=== PATIENT | male | born 1945 | race Caucasian/White ===

== ENCOUNTER → 2017-11-03 07:37 | Outpatient (CLI) | payer MEDICARE, MEDICAID, SELFPAY ==
--- NOTE | 2017-11-03 08:00 | US_ITS ---
US aorta HISTORY: Screening for aneurysm ITS.REASON: AAA COMPARISON: 04/27/2016 FINDINGS: No evidence of abdominal aortic aneurysm. Maximum AP dimension of the abdominal aorta is 2 cm. The common iliacs are unremarkable. IMPRESSION: No sonographic evidence of abdominal aortic aneurysm
--- NOTE | 2017-11-03 08:30 | CT_ITS ---
CT lung screening EXAM: CT LUNG LOW DOSE WO CONTRAST HISTORY: 30+ back year smoking history currently smoking, asymptomatic ITS.REASON: CURRENT TOBACCO USE ORDERING PHYSICIAN: Malcom Prieto MD PATIENT AGE: 72 years COMPARISON: None TECHNIQUE: The exam was performed on a GE [employer] Speed [address] scanner using 2.90 mGy CTDI. A low dose helical CT CHEST was performed on a multi-detector scanner. All CT scans at the facility use one or more dose reduction, viz: automated exposure control, ma/kV adjustment per patient size (including targeted exams where dose is matched to indication, i.e. head), or iterative reconstruction technique. The LDCT was performed in a facility that meets the criteria for the screening program. Data regarding this exam was submitted to ACR which is an approved registry. The order for this exam indicates that it came as a result of a lung cancer screening counseling shard decision-making visit that included all the elements required of such a visit including smoking cessation. The radiologist interpreting this exam meets the CMS criteria for the LDCT lung cancer screening program. The exam is reported using the Lung-RADS classification scale and reported to the ACR registry. NOTE: This study was performed for the specific purposes of lung cancer screening and is not an alternative to diagnostic chest CT. RADIATION DOSE: CTDI vol(CT dose Index-volume) = 2.90mG DLP (Dose Length Product) = 113.59 mGcm FINDINGS: Centrilobular emphysema with scattered areas of scarring worse in the right lung apex 7 mm noncalcified nodule in the right upper lobe posteriorly in the subpleural region of the major fissure. 3 mm noncalcified nodule right upper lobe anteriorly. 4 mm noncalcified nodule right upper lobe posteriorly fissural thickening of the right minor fissure. 4 mm nodule right upper lobe anteriorly and inferiorly, 4 mm nodule right upper lobe inferiorly along the minor fissure. 4 mm nodule right middle lobe posteriorly and superiorly. There are multiple small nodules in the right middle lobe 4 mm or less. Multiple 4 mm nodules or less in the right lower lobe. Multiple noncalcified nodules in the left lower lobe the largest at 6 mm.. 5 mm noncalcified nodule left apex. There is an oval calcified nodule left upper lobe which is 12 x 5 mm. No central obstructing lesions. There is mild diffuse bronchial thickening. Coronary artery calcification noted. Nonobstructing left renal stone superiorly at 5 mm. IMPRESSION: 1. Lung RADS Category: 4, indeterminate regarding multiple noncalcified pulmonary nodules the largest at 7 mm 2. Other findings: Centrilobular emphysema, coronary artery calcification, COPD RECOMMENDATIONS: [address] follow-up without and with contrast
== END ==
PROVIDERS: Family Provider Family Medicine; PCP Family Medicine; Visit Provider Family Medicine
DX: Z13.6 Encounter for screening for cardiovascular disorders (principal); Z12.2 Encounter for screening for malignant neoplasm of respiratory organs; Z87.891 Personal history of nicotine dependence
CPT/HCPCS: 76770

== ENCOUNTER → 2018-04-26 13:53 | Outpatient (CLI) | payer MEDICARE, MEDICAID, SELFPAY ==
[2018-04-26 14:14] LABS: Blood Urea Nitrogen 19 mg/dL (7-18); Creatinine,Serum 1.09 mg/dL (0.70-1.30); Estimated Glomerular Filt Rate 67 ml/min (>60); GFR (African American) 81 ML/MIN (>60)
--- NOTE | 2018-04-26 14:27 | CT_ITS ---
CT chest wo/w con HISTORY: Follow-up lung nodules ITS.REASON: LUNG NODULES,F/U ORDERING PHYSICIAN: Malcom Prieto MD PATIENT AGE: 72 years COMPARISON: 04/26/2018 Technique: Axial images obtained following the administration of 75 mL of Optiray 350 . Sagittal, and coronal reformatted images are also generated and reviewed. All CT scans at the facility use one or more dose reduction, viz: automated exposure control, ma/kV adjustment per patient size (including targeted exams where dose is matched to indication, i.e. head), or iterative reconstruction technique. FINDINGS: No mediastinal or hilar mass or adenopathy is evident. There are coronary artery calcifications noted to. No evidence of aortic aneurysm, dissection, or pulmonary embolus. Diffuse panlobular and centrilobular emphysematous changes are with diffuse areas of pulmonary scarring. There are numerous subcentimeter nodular opacities present. A 7 mm fissural nodule is resident in the region of the right minor fissure not readily apparent on the previous exam. Other nodule previously noted are somewhat less adherent in the inferior aspect of the right upper lobe. Many nodules are stable. A new 6 mm nodular opacity is present in the right lower lobe superior aspect series 3 image #51. A new 5 mm nodule present in the right lower lobe anteriorly series 3 image #62 there are stable 5 mm nodule left lower lobe series 3 image #54. The previously noted more prominent nodule in the right upper lobe posteriorly not identified on today's exam. Previously described calcified nodule left upper lobe is unchanged. The 5 mm nodule is present in the right middle lobe series 3 image 54 not readily apparent on the previous study. No effusions or infiltrates. Upper abdominal images are unremarkable. Degenerative changes are present in the thoracic spine. IMPRESSION: 1. Centrilobular and panlobular emphysema with scattered areas of fibrosis and old granulomatous disease 2. Waxing and waning nodules suggesting inflammatory etiology. Treated neoplasm would be included in the differential diagnosis Continued 6 month follow-up suggested. This can be performed without contrast
== END ==
PROVIDERS: Visit Provider Family Medicine
DX: R91.8 Other nonspecific abnormal finding of lung field (principal); Z09 Encounter for follow-up examination after completed treatment for conditions other than malignant neoplasm
CPT/HCPCS: 36415; 71270; 82565; 84520; Q9967

== ENCOUNTER → 2019-02-25 10:31 | Outpatient (CLI) | payer MEDICARE, MEDICAID, SELFPAY ==
--- NOTE | 2019-02-25 10:36 | XR_ITS ---
PROCEDURE: XR CHEST 2V CLINICAL HISTORY: DYSPNEA,COUGH,TOBACCO USE,COPD Dyspnea, cough, former smoker COMPARISON: CHESTWW CT chest wo/w con from 04/26/2018 FINDINGS: There are moderate emphysematous changes with scattered areas of scarring. Unremarkable cardiovascular structures. No lobar consolidation or collapse. Hyperinflation with eventration of the hemidiaphragms. Nodular opacity is present in the left upper lobe and is felt to be due to an area of scarring as noted on the previous CT scan. No acute bony anomaly. IMPRESSION: Emphysema with scattered fibrotic changes Dictated by: Yair Santos MD 02/25/2019 11:10 Electronically signed by Yair Santos MD in [place] 02/25/2019 11:10
== END ==
PROVIDERS: PCP Family Medicine; Visit Provider Family Medicine
DX: R06.09 Other forms of dyspnea (principal); R05 Cough; J44.1 Chronic obstructive pulmonary disease with (acute) exacerbation; F17.210 Nicotine dependence, cigarettes, uncomplicated
CPT/HCPCS: 71046

== ENCOUNTER → 2019-03-08 10:15 | Outpatient (CLI) | payer MEDICARE, MEDICAID, SELFPAY ==
--- NOTE | 2019-03-08 10:19 | CA_ITS ---
APPROVED REPORT EXAM: Comprehensive 2D, Doppler, and color-flow Echocardiogram Poker Prop Player: Maki New CRT Ht: 6 ft 0 in Wt: 145lbs BSA: 1.86 BP: 110/74 mmHg Indications: COPD, Shortness of Breath, EX SMOKER, HTN, PAD 2D Dimensions IVSd 1.20 cm LVEF (Visual) 43.50 % PWd 0.90 cm LVDd 3.80 cm LVDs 3.00 cm LVOT 1.80 cm (M/F) 1.5-2.5 M-Mode Dimensions LA Diam 3.30 cm (1.9-4.0) Ao Diam 3.80 cm (2.0-3.7) AV Cusp 1.90 cm (1.5-2.6) LV Diastology E/A Ratio 1.00 Aortic Valve AoV Peak Danny. 98.20 (50-130 cm/s) AO Peak GR. 4.00 mmHg Mitral Valve MV E Max Danny. 81.40 (40-130 cm/s) MV A Velocity 79.00 (40-130 cm/s) E/A Ratio 1.00 Pulmonary Valve PA Accel Time 113.00 (>120 msec) Tricuspid Valve TR P. Velocity 256.00 cm/s RAP Estimate 10.00 mmHg RVSP 36.00 mmHg Left Ventricle Left atrium is mildly enlarged, left ventricle is normal size, there is mild concentric left ventricular hypertrophy, visually estimated ejection fraction 55% with no regional wall motion abnormality, diastolic parameters are inconclusive. Right Ventricle Right atrium right ventricular mildly enlarged with normal contractility. Aortic Valve Aortic valve is minimally thickened and fibrosed, there is no aortic stenosis or aortic insufficiency. Mitral Valve Mitral valve leaflets are minimally thickened, there is mild mitral regurgitation. Tricuspid Valve Tricuspid valve is grossly normal, there is mild tricuspid regurgitation, calculated right ventricular systolic pressure 39 mmHg. Pulmonic Valve Pulmonic valve is poorly visualized. Great Vessels Aortic root is normal size. Pericardium No significant pericardial effusion noted. Conclusion 1. Mild biatrial abdomen, normal left ventricular size, mild concentric left ventricular hypertrophy, visually estimated ejection fraction 55% with no regional wall motion abnormality, diastolic parameters are inconclusive. 2. Mildly enlarged right ventricle with normal contractility. 3. Mild mitral and tricuspid regurgitation, calculated right ventricular systolic pressure 39 mmHg. 4. No significant pericardial effusion noted. Electronically signed by : Rodolfo Ford, 03/08/2019 21:14:55
== END ==
PROVIDERS: PCP Family Medicine; Visit Provider Family Medicine
DX: R06.09 Other forms of dyspnea (principal); I73.9 Peripheral vascular disease, unspecified; J44.1 Chronic obstructive pulmonary disease with (acute) exacerbation; F17.210 Nicotine dependence, cigarettes, uncomplicated
CPT/HCPCS: 93306

== ENCOUNTER → 2020-04-16 13:07 | Outpatient (CLI) | payer MEDICARE, MEDICAID, SELFPAY ==
--- NOTE | 2020-04-16 13:10 | CT_ITS ---
PROCEDURE: CT LUNG SCREENING CLINICAL INDICATION: H/O NICOTINE DEPENDENCE Current smoker 50 pack year smoking history COMPARISON: CT CHESTWW CT chest wo/w con from 04/26/2018 TECHNIQUE: The exam was performed on a [employer] Speed [address] scanner using 2.90 mGy CTDI. A low dose helical CT CHEST was performed on a multi-detector scanner. All CT scans at the facility use one or more dose reduction, viz: automated exposure control, ma/kV adjustment per patient size (including targeted exams where dose is matched to indication, i.e. head), or iterative reconstruction technique. The LDCT was performed in a facility that meets the criteria for the screening program. Data regarding this exam was submitted to ACR which is an approved registry. The order for this exam indicates that it came as a result of a lung cancer screening counseling shard decision-making visit that included all the elements required of such a visit including smoking cessation. The radiologist interpreting this exam meets the CMS criteria for the LDCT lung cancer screening program. The exam is reported using the Lung-RADS classification scale and reported to the ACR registry. NOTE: This study was performed for the specific purposes of lung cancer screening and is not an alternative to diagnostic chest CT. RADIATION DOSE: CTDI vol(CT dose Index-volume) = 2.90mG DLP (Dose Length Product) = 113.33 mGcm FINDINGS: COPD with centrilobular emphysema. There are scattered areas of scarring especially in the lung apices. There is evidence of old granulomatous disease. Fissural nodule is present in the right minor fissure anteriorly at 5 mm unchanged. No effusions or infiltrates. No suspicious pulmonary nodules. There are few small 2-3 mm nodular opacities which are unchanged with no new nodules apparent. OTHER FINDINGS: Coronary artery calcifications IMPRESSION: Lung-RADS Category 2 Benign Appearance or Behavior Follow-up: Continue annual screening with LDCT in 12 months Dictated by: Yair Santos MD 04/22/2020 12:28 Yair Santos MD in [place] 04/22/2020 12:28
--- NOTE | 2020-04-16 13:24 | CA_ITS ---
APPROVED REPORT EXAM: Comprehensive 2D, Doppler, and color-flow Echocardiogram [employer]ard Mitigation Officer: Michelle Jimenez RVT Ht: 6 ft 0 in Wt: 145lbs BSA: 1.86 BP: 123/76 mmHg Indications: SOA,COPD,HTN,EX SMOKER 2D Dimensions LVOT 2.03 cm (M/F) 1.5-2.5 M-Mode Dimensions RVDd 2.74 cm (0.9-2.6) LA Diam 3.16 cm (1.9-4.0) LVDd 4.18 cm (3.5-5.7) Ao Diam 3.16 cm (2.0-3.7) LVDs 2.55 cm (3.5-5.7) IVSd 0.57 cm (0.6-1.1) PWd 0.61 cm (0.6-1.1) EF (Teich) 69.90% FS 39.00% EDV (Teich) 77.70 mL ESV (Teich) 23.40 mL LV Diastology E Decel Time 210.00 (160-240 msec) E/A Ratio 1.4 MED E' 10.40 (< 7 cm/sec) E'/MED E' Ratio 8.38 (>14) LAT E' 9.10 (<10 cm/sec) E/LAT E' Ratio 9.58 (>14) Mitral Valve MV E Max Danny. 87.00 (40-130 cm/s) MV A Velocity 64.00 (40-130 cm/s) E/A Ratio 1.36 MV Decel. Time 210.00 (160-240 ms) MV PHT 62.00 ms Pulmonary Valve PV Peak Velocity 76.00 (50-150 cm/s) Tricuspid Valve TR P. Velocity 261.00 cm/s RAP Estimate 10.00 mmHg RVSP 37.20 mmHg Left Ventricle Left atrium is mildly enlarged, left ventricle is normal size, mild concentric left ventricular hypertrophy, visually estimated ejection fraction 55% with no regional wall motion abnormality, diastolic parameters are inconclusive. Right Ventricle Right atrium and right ventricle are mildly enlarged with normal contractility. Aortic Valve Aortic valve is minimally thickened and fibrosed, there is no aortic stenosis or aortic insufficiency. Mitral Valve Mitral valve leaflets are minimally thickened, there is trace mitral regurgitation. Tricuspid Valve Tricuspid grossly normal, there is mild tricuspid regurgitation, calculated right ventricular systolic pressure 37 mmHg. Pulmonic Valve Pulmonic valve is poorly visualized. Great Vessels Aortic root is normal size. Pericardium No significant pericardial effusion noted. Conclusion 1. Mild biatrial enlargement, normal left ventricular size, mild concentric left ventricular hypertrophy, visually estimated ejection fraction 55% with no regional wall motion abnormality, diastolic parameters are inconclusive. 2. Mildly enlarged right ventricle with normal contractility. 3. Trace mitral and mild tricuspid regurgitation, calculated right ventricular systolic pressure is 37 mmHg. 4. No significant pericardial effusion noted. Electronically signed by : Rodolfo Ford, 04/16/2020 17:59:07
== END ==
PROVIDERS: PCP Family Medicine; Visit Provider Family Medicine
DX: Z87.891 Personal history of nicotine dependence (principal); Z12.2 Encounter for screening for malignant neoplasm of respiratory organs; R06.02 Shortness of breath
CPT/HCPCS: 71271; 93306

== ENCOUNTER → 2020-05-01 10:16 | Outpatient (CLI) | payer MEDICARE, MEDICAID, SELFPAY ==
[2020-05-01 11:36] LABS: Coronavirus 19 IgG Antibody Positive (Negative); Coronavirus 19 IgM Antibody Negative (Negative)
== END ==
PROVIDERS: Visit Provider Surgery
DX: Z01.818 Encounter for other preprocedural examination (principal); Z20.822 Contact with and (suspected) exposure to COVID-19; Z12.11 Encounter for screening for malignant neoplasm of colon; Z86.010 Personal history of colon polyps
CPT/HCPCS: 36415; 86328

== ENCOUNTER 2020-05-03 09:27 | Day surgery (SDC) | payer MEDICARE, MEDICAID, SELFPAY ==
[2020-05-03] VITALS (7 sets, daily range): BP systolic 93–127; BP diastolic 62–69; PULSE 67–107; RESP 12–18; TEMP 36.2–36.5; O2SAT 97–100
--- NOTE | 2020-05-03 12:21 | HMH.SCOPE ---
- Procedure: Date: 05/03/20 Patient Date of :: 1945 Procedure Performed:: Esophagogastroduodenoscopy with biopsy Colonoscopy Indications:: History of colon polyps Abhi blood in stool Performing Provider:: Thang Hernandes MD Referring Provider:: . Sedation:: Monitored anesthesia care Procedure:: After informed consent was obtained the patient was taken to the endoscopy suite. Sedation ensued after the patient was transferred to the left lateral decubitus position. Pulse, blood pressure, and oxygen saturation were monitored throughout the procedure. The endoscope was advanced beyond the duodenal bulb. Retroflexion within the gastric lumen was accomplished. The gastroscope was carefully removed. Digital rectal exam revealed no significant abnormality. The colonoscope was placed in position. The entire colon was evaluated. The colonoscope was carefully removed and the patient was transferred to recovery in stable condition. Please see findings and specimens below for detail. Findings:: Moderate tortuosity of esophagus Gastroesophageal junction at 44 cm Small sliding hiatal hernia Mild patchy gastritis Bowel preparation moderate Hemorrhoidal cushions Sigmoid diverticulosis Specimens:: Antral biopsy Pyloric channel biopsy Biopsy of gastroesophageal junction Recommendations:: Follow-up pathology Consider UGI/SBFT followed by capsule endoscopy Repeat colonoscopy in 2-3 years secondary to history of polyps and moderate bowel preparation. Complications:: No immediate Estimated blood obtained (mL): 1
--- NOTE | 2020-05-03 15:10 | P.PN_ITS ---
[facility] Anesthesia Checklist - Patient Identification Patient Identification: Arm Band - Structural Data Admitted From: Home Planned Operative Procedure/s: EGD/Colonoscopy Consent for Planned Operative Procedure(s) Verified: Yes Verified Documents: Surgical Consent, History and Physical - NPO Status Verified Time NPO: 00:00 - Airway Assessment C-Spine Mobility Assessed: Yes TMJ Mobility Assessed: Yes Dentition: Edentulous - Neurological Assessment Level of Consciousness: Awake, Alert - Anesthesia Plan Anesthesia Risk discussed: Yes Anesthesia Plan: Verified ASA Class: II Anesthesia Type: MAC [facility] History Medical History: Reports:: Cancer (prostate), Hypertension Denies:: Diabetes Mellitus Type 1, Diabetes Mellitus Type 2, Internal Pacemaker, MRSA, Seizures *Have you ever received a pneumonia vaccine?: Yes *Have you received a flu vaccine this season?: Yes Anesthesia experience/problems:: NAC Other Surgeries: No: Pacemaker Amputation: No Fractures: No - *Social History Smoking Status: Current every day smoker Tobacco Type: cigarettes # Packs/Day (cigarettes): 1 #Yrs smoked (if former smoker): 20 Alcohol Intake: never Substance Use Type: denies use *Occupational Status:: retired Household Members: spouse *Travel in the last 8 weeks: None Family Hx:: No significant family history
--- NOTE | 2020-05-03 15:15 | P.PN_ITS ---
[facility] Anesthesia Record Part I Intake, IV Amount: 300 Estimated blood loss (mL): 0 Urine output (mL): 0 Blood Products used (#): none Blood Pressure: 93/62 SaO2: 100 Pulse Rate: 107 Respiratory Rate: 12 Temperature: 97.7 F Patient is:: Drowsy, Stable Stable to PACU at:: 12:17
== END 2020-05-03 12:58 | disposition home or self-care (01) ==
LOC: OUTP 09:29
PROVIDERS: PCP Family Medicine; Visit Provider Surgery
PROC: 0DJ08ZZ Inspection of Upper Intestinal Tract, Via Natural or Artificial Opening Endoscopic (ICD-10-PCS; CPT 43235; principal; 2020-05-03 10:30)
DX: K44.9 Diaphragmatic hernia without obstruction or gangrene (principal); K22.2 Esophageal obstruction; K29.60 Other gastritis without bleeding; K64.0 First degree hemorrhoids; K57.30 Diverticulosis of large intestine without perforation or abscess without bleeding; Z86.010 Personal history of colon polyps; I10 Essential (primary) hypertension; Z85.46 Personal history of malignant neoplasm of prostate; Z79.899 Other long term (current) drug therapy
CPT/HCPCS: 43239; 45378; 88305

== ENCOUNTER 2020-05-24 04:51 | Observation (INO) | payer MEDICARE, MEDICAID, SELFPAY ==
[2020-05-24] VITALS (23 sets, daily range): BP systolic 85–139; BP diastolic 51–74; PULSE 61–92; RESP 16–19; TEMP 36.3–36.9; O2SAT 92–100; BMI 17.6; BMI 18.3
--- NOTE | 2020-05-24 05:07 | HMH.EDGIBL ---
ED Disposition Clinical Impression: Upper gastrointestinal hemorrhage GI bleed Qualifiers: GI bleed type/associated pathology: melena Qualified Code(s): K92.1 - Melena Disposition: Admitted As Inpatient Condition on Discharge: Good Referrals: Malcom Prieto MD [Primary Care Provider] - - Critical Care Critical Care Time: No Attestation: On , the high probability of a clinically significant, sudden or life threatening deterioration of the following system(s) required my full and direct attention, intervention and personal management. The time I documented below is in addition to time spent performing reported procedures but includes the following listed in this critical care notation. Medical Decision Making - Medical Records Medical records reviewed: Yes: I reviewed the patient's medical records. - Kel Inquiry Pt receiving controlled substance: No Vital Signs: 05/24/20 04:53 05/24/20 06:00 Temperature 98.3 F Temperature Source Oral Pulse Rate 68 Pulse Rate [Right] 92 H Respiratory Rate 16 16 Blood Pressure 131/62 Blood Pressure [Right Arm] 110/74 Blood Pressure Mean 85 Blood Pressure Mean [Right Arm] 86 02 Sat by Pulse Oximetry 97 99 Oxygen Delivery Method Room Air - Lab Data Lab Results 05/24/20 05:16: WBC 6.8, RBC 4.59 L, Hgb 14.1, Hct 42.8, MCV 93.1, MCH 30.8, MCHC 33.1, RDW 13.9, Plt Count 259, MPV 8.3, Neut % (Auto) 67.3, Lymph % (Auto) 23.8, [place] % (Auto) 7.4, Eos % (Auto) 1.1, Baso % (Auto) 0.5, Neut # (Auto) 4.6, Lymph # (Auto) 1.6, [place] # (Auto) 0.5, Eos # (Auto) 0.1, Baso # (Auto) 0.0 05/24/20 05:16: PT 10.9, INR 0.92, APTT 26.8 05/24/20 05:16: Sodium 140, Potassium 3.3 L, Chloride 109 H, Carbon Dioxide 14 L, Anion Gap 20.3 H, BUN 48 H, Creatinine 3.10 H, Estimated Creat Clear 18, Estimated GFR 20 L, Est GFR ( Amer) 24 L, Glucose 132 H, Calcium 9.5, Total Bilirubin 0.4, AST 24, ALT 15, Alkaline Phosphatase 80, Total Protein 8.0, Albumin 4.9, Globulin 3.1, Albumin/Globulin Ratio 1.6 05/24/20 05:16: Lactate 0.7 05/24/20 06:20: Urine Color Yellow, Urine Appearance Clear, Urine pH 5.5, Ur Specific [place] >= 1.030, Urine Protein Negative, Urine Glucose (UA) Negative, Urine Ketones Negative, Urine Blood 1+, Urine Nitrate Negative, Urine Bilirubin Negative, Urine Urobilinogen 0.2, Ur Leukocyte Esterase Negative Result diagrams: 05/24/20 05:16 05/24/20 05:16 Orders (Tests/Meds): ED MEDICATIONS Generic Name Dose Route Start Last Admin Trade Name Freq PRN Reason Stop Dose Admin Lactated Ringer's 1,000 mls @ 999 mls/hr 05/24/20 05:30 05/24/20 05:31 Lactated Ringer's 1000 Ml Bag IV 05/24/20 06:30 999 mls/hr .Q1H1M KALINA Administration Lactated Ringer's 1,000 mls @ 999 mls/hr 05/24/20 06:30 05/24/20 06:21 Lactated Ringer's 1000 Ml Bag IV 05/24/20 07:30 999 mls/hr .Q1H1M KALINA Administration Pantoprazole Sodium 80 mg/ 100 mls @ 10 mls/hr 05/24/20 06:30 Sodium Chloride IV 05/27/20 06:29 .Q10H KALINA 8 MG/HR Sodium Chloride 10 ml 05/24/20 05:19 Sodium Chloride 0.9% 10ml Vial IV 06/23/20 05:18 NEEDED PRN dilute protonix Discontinued Medications Generic Name Dose Route Start Last Admin Trade Name Freq PRN Reason Stop Dose Admin Ondansetron HCl 4 mg 05/24/20 05:19 05/24/20 05:31 Ondansetron 4mg/2ml Vial IV 05/24/20 05:20 4 mg ONCE ONE Administration Pantoprazole Sodium 40 mg 05/24/20 05:19 05/24/20 05:31 Pantoprazole 40mg Vial IV 05/24/20 05:20 40 mg ONCE ONE Administration ORDERS Category Date Time Status Type and Screen Stat BBK 05/24/20 05:30 Received Full Resp Panel w/COVID ([facility]) Routine Lab 05/24/20 05:16 Received UA [Urinalysis and Microscopic] Stat Lab 05/24/20 06:20 Results Medical Decision Narrative: -year-old presenting with black tarry stools. Patient differentials include but are not limited to upper GI bleed, lower GI bleed, peptic ulcer disease, dehydration, JOSSELYN, an
[2020-05-24 05:51] LABS: Basophils % 0.5 % (0.1-2.0); Chloride 109 mmol/L (98-107); Eosinophils # 0.1 K/mm3 (0.0-0.4); Eosinophils % 1.1 % (0.1-12.0); Hematocrit 42.8 % (42.0-52.0); Hemoglobin 14.1 g/dL (14.1-18.0); Lymphocytes # 1.6 K/mm3 (0.7-4.5); Lymphocytes % 23.8 % (10-50); Mean Corpuscular HGB Conc 33.1 g/dL (31.8-35.4); Mean Corpuscular Hemoglobin 30.8 pg (27.0-31.2); Mean Corpuscular Volume 93.1 fl (80-94); Mean Platelet Volume 8.3 fl (7.4-10.4); Monocytes # 0.5 K/mm3 (0.1-1.0); Monocytes % 7.4 % (1.7-9.3); Neutrophils # 4.6 K/mm3 (1.8-7.8); Neutrophils % 67.3 % (37.0-80.0); Platelet Count 259 K/mm3 (142-424); Red Blood Count 4.59 M/mm3 (4.60-6.20); Red Cell Distribution Width 13.9 % (11.5-17.5); Sodium 140 mmol/L (136-145); White Blood Count 6.8 K/mm3 (4.8-10.8)
[2020-05-24 05:52] LABS: Potassium 3.3 mmoL/L (3.5-5.1)
[2020-05-24 05:54] LABS: Alanine Aminotransferase 15 U/L (12-78); Albumin Level 4.9 g/dl (3.5-5.0); Albumin/Globulin Ratio 1.6 (1.1-1.8); Alkaline Phosphatase 80 U/L (38-126); Anion Gap 20.3 mEq/L (5-15); Aspartate Amino Transferase 24 U/L (17-59); Bilirubin,Total 0.4 mg/dl (0.2-1.3); Blood Urea Nitrogen 48 mg/dl (9-20); Carbon Dioxide 14 mmol/L (22.0-30.0); Creatinine Clearance Estimated 18 mL/min (50-200); Estimated Glomerular Filt Rate 20 ml/min (>60); GFR (African American) 24 ML/MIN (>60); Globulin 3.1 g/dL (1.3-3.2)
[2020-05-24 05:55] LABS: Adenovirus,PCR Not Detected (NotDetected); Bordetella Pertussis Not Detected (NotDetected); Calcium 9.5 mg/dl (8.4-10.2); Chlamydophila Pneumoniae, PCR Not Detected (NotDetected); Coronavirus 19, PCR Not Detected (NotDetected); Coronavirus 229E Not Detected (NotDetected); Coronavirus NL63 Not Detected (NotDetected); Coronavirus OC43 Not Detected (NotDetected); Coronovirus HKU1,PCR Not Detected (NotDetected); Glucose 132 mg/dl (74-100); Human Metapneumovirus Not Detected (NotDetected); Influenza A, PCR Not Detected (NotDetected); Influenza AH1, 2009 Not Detected (NotDetected); Influenza AH1, PCR Not Detected (NotDetected); Influenza AH3,PCR Not Detected (NotDetected); Influenza B, PCR Not Detected (NotDetected); Mycoplasma Pneumoniae, PCR Not Detected (NotDetected); Parainfluenza 1, PCR Not Detected (NotDetected); Parainfluenza 2, PCR Not Detected (NotDetected); Parainfluenza 3, PCR Not Detected (NotDetected); Parainfluenza 4, PCR Not Detected (NotDetected); Respiratory Syncytial Virus Not Detected (NotDetected); Rhinovirus/Enterovirus Not Detected (NotDetected)
[2020-05-24 05:59] LABS: Activated Partial Thrombo Time 26.8 seconds (22.8-30.6); INR 0.92 (0.9-1.1); Prothrombin Time 10.9 seconds (10.1-12.5)
[2020-05-24 06:03] LABS: Lactic Acid 0.7 mmol/L (0.7-2.1)
[2020-05-24 06:25] LABS: Microscopic, Urine URINE MICROSCOPIC (MICROSCOPIC)
--- NOTE | 2020-05-24 06:26 | PC.NURSE ---
dr speaking with Dr Prieto for admission
[2020-05-24 06:27] LABS: Appearance,Urine CLEAR (Clear); Bilirubin,Urine Negative (Negative); Blood, Urine 1+ (Negative); Color,Urine YELLOW (Yellow); Glucose,Urine (UA) Negative (Negative); Ketones,Urine Negative (Negative); Leukocyte Esterase,Urine Negative (Negative); Nitrate,Urine Negative (Negative); PH,Urine 5.5 (5.0-8.5); Protein,Urine Negative (Negative); Specific Gravity, Urine >= 1.030 (1.005-1.030); Urobilinogen,Urine 0.2 EU/dl (0.2)
[2020-05-24 06:44] LABS: Squamous Epithelial Cell,Urine Occasional #/hpf (0-5)
--- NOTE | 2020-05-24 07:27 | HMH.PHAVTE ---
[facility] Pharmacy VTE Monitoring - Patient Demographics Admission date: 05/23/20 Report Date: 05/24/20 Time: 07:27 Allergies/Adverse Reactions: Patient Allergies No Known Drug Allergies [NKDA] Allergy (Unknown, Verified 05/09/20 14:07) Height: 1.83 m Weight: 58.967 kg Patient Problems: Current Active Problems GI bleed (Acute) Upper gastrointestinal hemorrhage (Acute) - VTE Risk Labs: VTE Related Lab Results Hgb 14.1 g/dL (14.1-18.0) 05/24/20 05:16 Hct 42.8 % (42.0-52.0) 05/24/20 05:16 Plt Count 259 K/mm3 (142-424) 05/24/20 05:16 PT 10.9 seconds (10.1-12.5) 05/24/20 05:16 INR 0.92 (0.9-1.1) 05/24/20 05:16 APTT 26.8 seconds (22.8-30.6) 05/24/20 05:16 BUN 48 mg/dl (9-20) H 05/24/20 05:16 Creatinine 3.10 mg/dl (0.66-1.25) H 05/24/20 05:16 Estimated Creat Clear 18 mL/min (50-200) 05/24/20 05:16 - Prophylaxis VTE Prophylaxis Ordered?: Yes Types of VTE Prophylaxis: TEDS Knee High Location of Applied Device: Bilateral Lower Extremeties
--- NOTE | 2020-05-24 07:33 | PC.NURSE ---
LAB STATED THE COVID TEST FAILED AND THE SWAB WILL NEED TO BE RE-TESTED.
--- NOTE | 2020-05-24 07:52 | HMH.HP ---
*Admission Date: 05/23/20 *Chief complaint: Black stool *History of present illness: 74-year-old male who for the last 2 months has been having episodes of GI bleeding presented to the emergency department early this morning after nearly 72 hours of diarrhea that had become black as well as vomiting. Patient reports illness started on Thursday afternoon when he developed diarrhea. By Thursday he had developed diarrhea that was now black in color. He estimates he was having 8-12 bowel movements per day. He did not have fevers. By Thursday evening he had developed associated vomiting without hematemesis. This continued until early this morning when patient finally sought treatment at the ER. Patient is recently had colonoscopy and EGD by Dr. Robison. He has been off all anticoagulants since that time. Patient was scheduled as an outpatient small bowel follow-through but due to illness missed the appointment. Patient denies abdominal pain. Patient also noticed that his urine production had decreased significantly. On initial evaluation in the emergency department patient was unable to give a urine sample and even after Padilla catheterization patient had less than 20 mL of urine output. Patient has subsequently been started on fluids with improvement in urination. He was found to have acute kidney injury [facility] History I have reviewed the patient's past medical history: Yes Medical History: Reports:: Cancer, Hypertension, Peripheral Artery Disease (Has patient's inpatient) Denies:: Diabetes Mellitus Type 1, Diabetes Mellitus Type 2, Internal Pacemaker, MRSA, Seizures *Have you ever received a pneumonia vaccine?: Yes *Have you received a flu vaccine this season?: Yes Other Surgeries: Yes: Colonoscopy. No: Pacemaker Amputation: No Fractures: No - *Social History Smoking Status: Current every day smoker Tobacco Type: cigarettes # Packs/Day (cigarettes): 1 #Yrs smoked (if former smoker): 20 Alcohol Intake: never Substance Use Type: denies use *Occupational Status:: retired Household Members: spouse *Travel in the last 8 weeks: None Family Hx:: No significant family history Review of Systems - Constitutional Reports lack of energy, Denies anorexia, Denies body ache(s) - Eyes Reports blurry vision - ENT Denies ear discharge - *Cardiovascular Denies chest pain, Denies chest pain at rest, Denies chest pain with activity - *Respiratory Denies change in phlegm color, Denies chest congestion, Denies cough, Denies shortness of breath - *Gastrointestinal Denies abdominal pain - *Genitourinary Reports difficulty urinating - *Musculoskeletal Denies joint pain - Integumentary/Breasts Denies hair loss - *Neurologic Denies abnormal movements - Psychiatric Denies lack of enjoyment, Denies anxiety Meds Home Medications Medication Instructions Recorded Confirmed Type acetazolamide 500 mg 500 mg PO DAILY 04/25/20 05/24/20 History capsule,extended release dorzolamide 22.3 mg-timolol 6.8 1 drp OPHTHALMIC BID 04/25/20 05/24/20 History mg/mL eye drops lisinopril 10 1 tab PO DAILY 04/25/20 05/24/20 History mg-hydrochlorothiazide 12.5 mg tablet pilocarpine HCl 2 % eye drops 1 drp OPHTHALMIC 5X04/25/20 05/24/20 History Clopidogrel Bisulfate [Clopidogrel 75 mg PO DAILY 05/24/20 05/24/20 History 75mg Tab] Allergies Allergy/AdvReac Type Severity Reaction Status Date / Time No Known Drug Allergies Allergy Unknown Verified 05/09/20 14:07 [NKDA] Exam Vital signs and Labs for Last 24 Hours: Temp Pulse Resp BP Pulse Ox 98.3 F 71 16 129/66 99 05/24/20 07:14 05/24/20 07:14 05/24/20 07:14 05/24/20 07:14 05/24/20 06:00 Laboratory Results - last 24 hr 05/24/20 05:16: WBC 6.8, RBC 4.59 L, Hgb 14.1, Hct 42.8, MCV 93.1, MCH 30.8, MCHC 33.1, RDW 13.9, Plt Count 259, MPV 8.3, Neut % (Auto) 67.3, Lymph % (Auto) 23.8, [place] % (Auto) 7.4, Eos % (Auto) 1.1, Baso % (Auto) 0.5, Neut # (Au
--- NOTE | 2020-05-24 08:39 | PC.NURSE ---
pt placed in hospital gown. at bedside updated on plan of care
--- NOTE | 2020-05-24 09:19 | HMH.ANESCL ---
[facility] Anesthesia Checklist - Patient Identification Patient Identification: Arm Band - Structural Data Admitted From: Inpatient Planned Operative Procedure/s: EGD Consent for Planned Operative Procedure(s) Verified: Yes Verified Documents: Surgical Consent, History and Physical - NPO Status Verified Time NPO: 00:00 - Additional verifications Anesthesia Reactions: No - Airway Assessment C-Spine Mobility Assessed: Yes (mp2) TMJ Mobility Assessed: Yes Dentition: Edentulous - Neurological Assessment Level of Consciousness: Awake, Alert - Anesthesia Plan Anesthesia Risk discussed: Yes Anesthesia Plan: Verified ASA Class: III Anesthesia Type: MAC [facility] History I have reviewed the patient's past medical history: Yes Medical History: Reports:: Cancer, Hypertension, Peripheral Artery Disease (Has patient's inpatient) Denies:: Diabetes Mellitus Type 1, Diabetes Mellitus Type 2, Internal Pacemaker, MRSA, Seizures *Have you ever received a pneumonia vaccine?: Yes *Have you received a flu vaccine this season?: Yes Other Medical History: Reports: Other (acute kidney injury) Anesthesia experience/problems:: nac Other Surgeries: Yes: Colonoscopy, EGD, Other (prostatectomy). No: Pacemaker Amputation: No Fractures: No - *Social History Smoking Status: Current every day smoker Tobacco Type: cigarettes # Packs/Day (cigarettes): 1 #Yrs smoked (if former smoker): 20 Alcohol Intake: never Substance Use Type: denies use *Occupational Status:: retired Household Members: spouse *Travel in the last 8 weeks: None Family Hx:: No significant family history
--- NOTE | 2020-05-24 09:34 | HMH.GSCON ---
*Admission Date: 05/23/20 *Reason for consult:: Gastrointestinal hemorrhage *History of present illness: This is a 74-year-old gentleman seen in consultation with Dr. Prieto for evaluation regarding gastrointestinal hemorrhage. He recently underwent EGD/colonoscopy for evaluation of melinda blood in stool. No definitive/significant abnormalities were noted to attribute his symptomatology. He was scheduled to undergo UGI/SBFT and possible follow-up capsule endoscopy; however, a the UGI/SBFT was not completed secondary to the patient getting sick . Please see HPI from admission H&P forwarded below. Forwarded from admission H&P: 74-year-old male who for the last 2 months has been having episodes of GI bleeding presented to the emergency department early this morning after nearly 72 hours of diarrhea that had become black as well as vomiting. Patient reports illness started on Thursday afternoon when he developed diarrhea. By Thursday he had developed diarrhea that was now black in color. He estimates he was having 8-12 bowel movements per day. He did not have fevers. By Thursday evening he had developed associated vomiting without hematemesis. This continued until early this morning when patient finally sought treatment at the ER. Patient is recently had colonoscopy and EGD by Dr. Robison. He has been off all anticoagulants since that time. Patient was scheduled as an outpatient small bowel follow-through but due to illness missed the appointment. Patient denies abdominal pain. Patient also noticed that his urine production had decreased significantly. On initial evaluation in the emergency department patient was unable to give a urine sample and even after Padilla catheterization patient had less than 20 mL of urine output. Patient has subsequently been started on fluids with improvement in urination. He was found to have acute kidney injury Review of Systems - Constitutional Denies chills - Eyes Denies change in vision - ENT Denies difficulty swallowing - *Cardiovascular Denies chest pain - *Respiratory Denies cough - *Gastrointestinal Reports loose stools, Reports black, tarry stools - *Genitourinary Denies blood in urine - *Musculoskeletal Denies deformity - Integumentary/Breasts Denies new lesions - *Neurologic Denies abnormal movements - Psychiatric Denies anxiety - Endocrine Denies cold intolerance - Hematologic/Lymphatic Denies easy bruising - Allergic/Immunologic Denies wheezing [facility] History Medical History: Reports:: Cancer, Hypertension, Peripheral Artery Disease (Has patient's inpatient) Denies:: Diabetes Mellitus Type 1, Diabetes Mellitus Type 2, Internal Pacemaker, MRSA, Seizures *Have you ever received a pneumonia vaccine?: Yes *Have you received a flu vaccine this season?: Yes Other Medical History: Reports: Other (acute kidney injury) Anesthesia experience/problems:: nac Other Surgeries: Yes: Colonoscopy, EGD, Other (prostatectomy). No: Pacemaker Amputation: No Fractures: No - *Social History Smoking Status: Current every day smoker Tobacco Type: cigarettes # Packs/Day (cigarettes): 1 #Yrs smoked (if former smoker): 20 Alcohol Intake: never Substance Use Type: denies use *Occupational Status:: retired Household Members: spouse *Travel in the last 8 weeks: None Family Hx:: No significant family history Meds Home Medications Medication Instructions Recorded Confirmed Type acetazolamide 500 mg 500 mg PO DAILY 04/25/20 05/24/20 History capsule,extended release dorzolamide 22.3 mg-timolol 6.8 1 drp OPHTHALMIC BID 04/25/20 05/24/20 History mg/mL eye drops lisinopril 10 1 tab PO DAILY 04/25/20 05/24/20 History mg-hydrochlorothiazide 12.5 mg tablet pilocarpine HCl 2 % eye drops 1 drp OPHTHALMIC 5XDAY 04/25/20 05/24/20 History Clopidogrel Bisulfate [Clopidogrel 75 mg PO DAILY 05/24/20 05/24/20 History 75mg Tab] Allergies Allergy/AdvReac Type Severit
--- NOTE | 2020-05-24 10:01 | FL_ITS ---
PROCEDURE: FL UPPER GI SMALL BOWEL CLINICAL INDICATION: GI bleed Black tar stools COMPARISON: No exams were available for comparison FINDINGS: Passenger Solicitor exam demonstrates surgical clips in the pelvis with a left iliac artery stent. There is a small sliding hiatal hernia with non constricting Schatzki's ring. No mass or ulcer within the stomach or duodenum. There is a small duodenal diverticulum projecting superiorly off of the transverse portion of the duodenum. The small bowel has an unremarkable appearance. No mass mucosal abnormality or constricting lesions evident. Spot views of the terminal ileum are unremarkable. The appendix did fill during the exam. IMPRESSION: Small sliding hiatal hernia with non constricting Schatzki's ring and small duodenal diverticulum otherwise unremarkable upper GI and small-bowel follow-through. Dictated by: Yair Santos MD 05/24/2020 13:44 Yair Santos MD in [facility] 05/24/2020 13:44
--- NOTE | 2020-05-24 10:01 | P.PCN_ITS ---
- Procedure: Date: 05/24/20 Patient Date of :: 1945 Procedure Performed:: Esophagogastroduodenoscopy with biopsy Indications:: Upper gastrointestinal hemorrhage Performing Provider:: Thang Hernandes MD Referring Provider:: Dr. Prieto Sedation:: Monitored anesthesia care Procedure:: After informed consent was obtained the patient was taken to the endoscopy suite. Sedation ensued after the patient was transferred to the left lateral decubitus position. Pulse, blood pressure, and oxygen saturation were monitored throughout the procedure. The endoscope was advanced beyond the duodenal bulb. Retroflexion within the gastric lumen was accomplished. The gastroscope was carefully removed and the patient was transferred to recovery in stable c ondition. Please see findings and specimens below for detail. Findings:: No sign of active hemorrhage or old blood No obvious ulceration or mass Significant amount of retained food particles (majority removed by way of suctioning) Minimal gastritis Distal gastric angulation making proximal duodenal bulb difficult to visualize; however, no obvious ulceration or bleeding seen at this site Specimens:: Antral biopsy Recommendations:: UGI/SBFT ordered Capsule endoscopy (pending results of UGI/SBFT) Complications:: No immediate Estimated blood obtained (mL): 1
--- NOTE | 2020-05-24 10:26 | PC.NURSE ---
Pt arrived to the floor at this time.
[2020-05-24 14:21] LABS: Hematocrit 38.2 % (42.0-52.0); Hemoglobin 12.4 g/dL (14.1-18.0)
--- NOTE | 2020-05-24 20:01 | PC.NURSE ---
HE IS AOX4, ABLE TO MAKE NEEDS KNOWN TO STAFF, PT HAD EGD TODAY BEFORE ARRIVING TO FLOOR, POST OP VITAL SIGNS WERE STARTED AT 1030 WHEN PT ARRIVED FROM OR, PT THEN LEFT FLOOR FOR 2ND PROVEDURE IN RADIOLOGY DEPARTMENT AND VITAL SIGNS WERE PAUSED, THIS NURSE CALLED TO RADIOLOGY FOR UPDATE ON PT CONDITION, SINCE ARRIVING BACK TO FLOOR HE HIS VITAL SIGNS HAVE BEEN STABLE, HE HAS TOLERATED RA WELL, HAS MADE MULTIPLE TRIPS TO THE RESTROOM, PT REPORTS NO ABD PAIN OR N/V, PT HAS STATED THAT HE HAS HAD MULTIPLE EPISODES OF DIARRHEA, NO NEEDS VOICED.
[2020-05-25] VITALS: BP 101/52; PULSE 78; RESP 16; TEMP 36.5; O2SAT 98
--- NOTE | 2020-05-25 02:47 | PC.NURSE ---
Protonix drip d/c by Dr. Prieto at 05/24/20 at 16:07 and confirmed with Tyson (pharmacist) as the original order states continuous drip x 72 hours unable to verify with progress notes. Will pass in report to next nurse.
[2020-05-25 04:00] VITALS: BP 89/52; PULSE 60; RESP 16; TEMP 36.7; O2SAT 98
[2020-05-25 05:00] VITALS: BMI 18.8
--- NOTE | 2020-05-25 06:31 | PC.NURSE ---
patient had an uneventful night; Protonix drip was d/c; called pharmacy operations and maintenance technician (Tyson) as the order stated continuous for 72 hours. Will pass this on to next nurse to discuss with physician.
--- NOTE | 2020-05-25 06:51 | HMH.GSPN ---
Subjective Patient reports: no new complaints Progress Note: A&P (1) Upper gastrointestinal hemorrhage Status: Acute Assessment and plan: Patient/recent progress note repeat EGD yesterday. No significant abnormality noted on UGI/SBFT. Follow-up a.m. labs Recommend capsule endoscopy in the near future (2) Acute kidney injury Status: Acute (3) Peripheral arterial disease Status: Acute (4) Essential hypertension Status: Acute Exam Vital signs and Labs for Last 24 Hours: Temp Pulse Resp BP Pulse Ox 98.0 F 60 16 89/52 L 98 05/25/20 04:00 05/25/20 04:00 05/25/20 04:00 05/25/20 04:00 05/25/20 04:00 Laboratory Results - last 24 hr 05/24/20 05:16: Chlamy pneumoniae PCR Not detected, Adenovirus (PCR) Not detected, B. pertussis DNA (PCR) Not detected, Coronavirus OC43 (PCR) Not detected, Coronavirus HKU1 (PCR) Not detected, Coronavirus 229E (PCR) Not detected, SARS-CoV-2 (PCR) Not detected, Coronavirus NL63 (PCR) Not detected, Human Metapneumovir PCR Not detected, Influenza A (H1) PCR Not detected, Influ A (H1N1/09) PCR Not detected, Influenza A (H3) PCR Not detected, Influenza Type A (PCR) Not detected, Influenza Type B (PCR) Not detected, M. pneumoniae (PCR) Not detected, Parainfluenza 1 (PCR) Not detected, Parainfluenza 2 (PCR) Not detected, Parainfluenza 3 (PCR) Not detected, Parainfluenza 4 (PCR) Not detected, RSV (PCR) Not detected, Entero/Rhino (PCR) Not detected 05/24/20 05:30: Blood Type A Negative, Antibody Screen Negative 05/24/20 14:05: Hgb 12.4 L D, Hct 38.2 L I & O for Last 24 hours: Intake & Output 05/22/20 05/23/20 05/24/20 05/25/20 11:59 11:59 11:59 11:59 Intake Total 1999 360 / 360 Balance 1999 360 / 360 Weight 135 lb 7 oz 139 lb 1 oz Radiology Reports for the Last 24 Hours: UGI/SBFT IMPRESSION: Small sliding hiatal hernia with non constricting Schatzki's ring and small duodenal diverticulum otherwise unremarkable upper GI and small-bowel follow-through. - Constitutional no acute distress - *Routine Respiratory Exam Absent: respiratory distress - *Routine Cardiovascular Exam Present: RRR - *Routine Abdominal Exam Present: soft
--- NOTE | 2020-05-25 07:33 | HMH.ACPN2 ---
Internal Medicine - PN: Subj *Date: 05/25/20 *Time: 07:33 Interval history: Patient has not had any further vomiting or diarrhea. He did have a bowel movement and passed barium. He denies abdominal pain. Exam Vital signs and Labs for Last 24 Hours: Temp Pulse Resp BP Pulse Ox 98.0 F 60 16 89/52 L 98 05/25/20 04:00 05/25/20 04:00 05/25/20 04:00 05/25/20 04:00 05/25/20 04:00 Laboratory Results - last 24 hr 05/24/20 05:16: Chlamy pneumoniae PCR Not detected, Adenovirus (PCR) Not detected, B. pertussis DNA (PCR) Not detected, Coronavirus OC43 (PCR) Not detected, Coronavirus HKU1 (PCR) Not detected, Coronavirus 229E (PCR) Not detected, SARS-CoV-2 (PCR) Not detected, Coronavirus NL63 (PCR) Not detected, Human Metapneumovir PCR Not detected, Influenza A (H1) PCR Not detected, Influ A (H1N1/09) PCR Not detected, Influenza A (H3) PCR Not detected, Influenza Type A (PCR) Not detected, Influenza Type B (PCR) Not detected, M. pneumoniae (PCR) Not detected, Parainfluenza 1 (PCR) Not detected, Parainfluenza 2 (PCR) Not detected, Parainfluenza 3 (PCR) Not detected, Parainfluenza 4 (PCR) Not detected, RSV (PCR) Not detected, Entero/Rhino (PCR) Not detected 05/24/20 14:05: Hgb 12.4 L D, Hct 38.2 L I & O for Last 24 hours: Intake & Output 05/22/20 05/23/20 05/24/20 05/25/20 11:59 11:59 11:59 11:59 Intake Total 1999 360 / 360 Balance 1999 360 / 360 Weight 135 lb 7 oz 139 lb 1 oz Narrative: Patient looks well. Lungs are clear. Heart has regular rate and rhythm. Abdomen is soft. Assessment and Plan (1) Upper gastrointestinal hemorrhage Status: Acute Category: Medical Code(s): K92.2 - Gastrointestinal hemorrhage, unspecified (2) Acute kidney injury Status: Acute Category: Medical Code(s): N17.9 - Acute kidney failure, unspecified (3) Peripheral arterial disease Status: Acute Category: Medical Code(s): I73.9 - Peripheral vascular disease, unspecified (4) Essential hypertension Status: Acute Category: Medical Code(s): I10 - Essential (primary) hypertension - Assessment and plan all Dx Assessment and Plan for all problems:: 1. DC Padilla catheter 2. Await labs. If H&H is decreased for will plan to stop IV fluids and repeat this afternoon.
[2020-05-25 08:00] VITALS: BP 99/57; PULSE 60; RESP 17; TEMP 36.7; O2SAT 99
[2020-05-25 08:07] LABS: Basophils % 0.6 % (0.1-2.0); Eosinophils # 0.1 K/mm3 (0.0-0.4); Eosinophils % 2.6 % (0.1-12.0); Hematocrit 34.9 % (42.0-52.0); Hemoglobin 11.5 g/dL (14.1-18.0); Lymphocytes # 1.7 K/mm3 (0.7-4.5); Lymphocytes % 42.7 % (10-50); Mean Corpuscular HGB Conc 32.8 g/dL (31.8-35.4); Mean Corpuscular Volume 94.4 fl (80-94); Mean Platelet Volume 9.3 fl (7.4-10.4); Monocytes # 0.3 K/mm3 (0.1-1.0); Monocytes % 6.8 % (1.7-9.3); Neutrophils # 1.9 K/mm3 (1.8-7.8); Neutrophils % 47.3 % (37.0-80.0); Platelet Count 200 K/mm3 (142-424); Red Cell Distribution Width 14.1 % (11.5-17.5)
[2020-05-25 08:34] LABS: Chloride 115 mmol/L (98-107); Sodium 141 mmol/L (136-145)
[2020-05-25 08:37] LABS: Anion Gap 12.7 mEq/L (5-15); Blood Urea Nitrogen 36 mg/dl (9-20); Calcium 8.6 mg/dl (8.4-10.2); Carbon Dioxide 17 mmol/L (22.0-30.0); Creatinine Clearance Estimated 28 mL/min (50-200); Estimated Glomerular Filt Rate 31 ml/min (>60); GFR (African American) 38 ML/MIN (>60); Glucose 111 mg/dl (74-100); Potassium 3.7 mmoL/L (3.5-5.1)
[2020-05-25 14:27] LABS: Hematocrit 31.5 % (42.0-52.0); Hemoglobin 10.6 g/dL (14.1-18.0)
[2020-05-25 16:00] VITALS: BP 113/58; PULSE 59; RESP 17; TEMP 36.6; O2SAT 100
--- NOTE | 2020-05-25 16:12 | PC.NURSE ---
Pt is alert and oriented x 4. Lungs are clear, bowel sounds active x 4. He remains on RA. He is able to verbalize his needs. He has ambulated to the bathroom independently and tolerates well. Appetite is good and he has tolerated his diet. Padilla removed this am and patient has urinated several times since. He denies vomiting or abdominal pain. is at bedside and supportive.
[2020-05-25 20:00] VITALS: BP 110/56; PULSE 61; RESP 16; TEMP 36.7; O2SAT 98
[2020-05-25 20:12] LABS: Hematocrit 31.7 % (42.0-52.0); Hemoglobin 10.1 g/dL (14.1-18.0)
--- NOTE | 2020-05-26 03:43 | PC.NURSE ---
No acute changes this shift. was notified of H&H obtained early in shift. .7. Pt has labs in AM. Pt has not voiced any complaints this shift. Has slept well. VSS. Pt remains on RA. BS active. No concerns at this time. Will continue to monitor.
[2020-05-26 04:00] VITALS: BP 115/62; PULSE 61; RESP 20; TEMP 36.8; O2SAT 97
[2020-05-26 05:00] VITALS: BMI 18.4
[2020-05-26 07:33] LABS: Chloride 116 mmol/L (98-107); Sodium 139 mmol/L (136-145)
[2020-05-26 07:36] LABS: Blood Urea Nitrogen 28 mg/dl (9-20); Calcium 8.8 mg/dl (8.4-10.2); Carbon Dioxide 17 mmol/L (22.0-30.0); Creatinine Clearance Estimated 38 mL/min (50-200); Estimated Glomerular Filt Rate 46 ml/min (>60); GFR (African American) 56 ML/MIN (>60); Glucose 99 mg/dl (74-100)
[2020-05-26 07:38] LABS: Basophils % 0.7 % (0.1-2.0); Eosinophils # 0.4 K/mm3 (0.0-0.4); Eosinophils % 8.5 % (0.1-12.0); Hematocrit 32.8 % (42.0-52.0); Hemoglobin 10.8 g/dL (14.1-18.0); Lymphocytes # 2.2 K/mm3 (0.7-4.5); Lymphocytes % 52.2 % (10-50); Mean Corpuscular Hemoglobin 30.7 pg (27.0-31.2); Mean Corpuscular Volume 93.2 fl (80-94); Mean Platelet Volume 8.7 fl (7.4-10.4); Monocytes # 0.2 K/mm3 (0.1-1.0); Monocytes % 5.6 % (1.7-9.3); Neutrophils # 1.4 K/mm3 (1.8-7.8); Platelet Count 182 K/mm3 (142-424); Red Blood Count 3.52 M/mm3 (4.60-6.20); Red Cell Distribution Width 13.9 % (11.5-17.5); White Blood Count 4.2 K/mm3 (4.8-10.8)
[2020-05-26 07:43] LABS: MANUAL DIFFERENTIAL MANUAL DIFFERENTIAL (MANUAL DIFF)
[2020-05-26 08:00] VITALS: BP 107/64; PULSE 55; RESP 17; TEMP 36.7; O2SAT 97
[2020-05-26 08:03] LABS: Lymphocytes % 48 % (10-50); Monocytes % 5 % (2-9); Neutrophils % 47 % (42-76); Platelet Estimate Normal; Total Cells Counted 100
[2020-05-26 08:04] LABS: RBC Morphology Normal
--- NOTE | 2020-05-26 08:45 | P.PN_ITS ---
Internal Medicine - PN: Subj *Date: 05/26/20 *Time: 08:45 Interval history: Patient doing well this morning. Has no complaints. H&H decreased overnight but has increased again this morning and stabilized at 10.8. Patient had a yellow bowel movement this morning. Since admission there has been no vomiting nor diarrhea with black stools Exam Vital signs and Labs for Last 24 Hours: Temp Pulse Resp BP Pulse Ox 98.3 F 61 20 115/62 97 05/26/20 04:00 05/26/20 04:00 05/26/20 04:00 05/26/20 04:00 05/26/20 04:00 Laboratory Results - last 24 hr 05/25/20 07:55: Potassium 3.7, Anion Gap 12.7 05/25/20 14:00: Hgb 10.6 L, Hct 31.5 L 05/25/20 20:00: Hgb 10.1 L, Hct 31.7 L 05/26/20 07:12: WBC 4.2 L, RBC 3.52 L, Hgb 10.8 L, Hct 32.8 L, MCV 93.2, MCH 30.7, MCHC 33.0, RDW 13.9, Plt Count 182, MPV 8.7, Neut % (Auto) 33.0 L, Lymph % (Auto) 52.2 H, [place] % (Auto) 5.6, Eos % (Auto) 8.5, Baso % (Auto) 0.7, Neut # (Auto) 1.4 L, Lymph # (Auto) 2.2, [place] # (Auto) 0.2, Eos # (Auto) 0.4, Baso # (Auto) 0.0, Total Counted 100, Neutrophils % (Manual) 47, Lymphocytes % (Manual) 48, Monocytes % (Manual) 5, Platelet Estimate Normal, RBC Morphology Normal 05/26/20 07:12: Sodium 139, Potassium 4.0, Chloride 116 H, Carbon Dioxide 17 L, Anion Gap 10.0, BUN 28 H, Creatinine 1.50 H D, Estimated Creat Clear 38, Estimated GFR 46 L, Est GFR ( Amer) 56 L D, Glucose 99, Calcium 8.8 I & O for Last 24 hours: Intake & Output 05/23/20 05/24/20 05/25/20 05/26/20 11:59 11:59 11:59 11:59 Intake Total 1999 2448 / 2448 720 / 720 Balance 1999 2448 / 2448 720 / 720 Weight 135 lb 7 oz 139 lb 1 oz 136 lb 2 oz - Constitutional no acute distress - *Routine Abdominal Exam Present: soft, normoactive bowel sounds. Absent: tenderness Assessment and Plan (1) Upper gastrointestinal hemorrhage Status: Acute Category: Medical Code(s): K92.2 - Gastrointestinal hemorrhage, unspecified (2) Acute kidney injury Status: Acute Category: Medical Code(s): N17.9 - Acute kidney failure, unspecified (3) Peripheral arterial disease Status: Acute Category: Medical Code(s): I73.9 - Peripheral vascular disease, unspecified (4) Essential hypertension Status: Acute Category: Medical Code(s): I10 - Essential (primary) hypertension - Assessment and plan all Dx Assessment and Plan for all problems:: Discharge home. We did discuss capsule endoscopy which the patient is hesitant to pursue
--- NOTE | 2020-05-26 08:46 | HMH.DCSUM ---
General - General Admission date:: 05/24/20 Discharge date: 05/26/20 HPI HPI: 74-year-old male who for the last 2 months has been having episodes of GI bleeding presented to the emergency department early this morning after nearly 72 hours of diarrhea that had become black as well as vomiting. Patient reports illness started on Thursday afternoon when he developed diarrhea. By Thursday he had developed diarrhea that was now black in color. He estimates he was having 8-12 bowel movements per day. He did not have fevers. By Thursday evening he had developed associated vomiting without hematemesis. This continued until early this morning when patient finally sought treatment at the ER. Patient is recently had colonoscopy and EGD by Dr. Robison. He has been off all anticoagulants since that time. Patient was scheduled as an outpatient small bowel follow-through but due to illness missed the appointment. Patient denies abdominal pain. Patient also noticed that his urine production had decreased significantly. On initial evaluation in the emergency department patient was unable to give a urine sample and even after Padilla catheterization patient had less than 20 mL of urine output. Patient has subsequently been started on fluids with improvement in urination. He was found to have acute kidney injury Hospital Course Hospital Course: Patient was admitted and underwent EGD which did not identify any active source of bleeding, only gastritis. H&H was followed and trended down. Patient never had abdominal pain. Vomiting and diarrhea resolved with admission. Patient had upper GI with small bowel follow-through after EGD which was also unremarkable. Capsule endoscopy has been recommended by Dr. Robison of the surgical service and patient wants to think about it . Once H&H stabilized patient was discharged home. Patient will follow-up in the office on Thursday or Thursday of this coming week. He is to hold his antihypertensive until follow-up. Patient had acute kidney injury on admission likely due to dehydration from his vomiting and diarrhea. Lisinopril was held. Patient was hydrated with normal saline. Creatinine improved. Patient will hold antihypertensive at discharge Objective Vital signs: Temp Pulse Resp BP Pulse Ox 98.3 F 61 20 115/62 97 05/26/20 04:00 05/26/20 04:00 05/26/20 04:00 05/26/20 04:00 05/26/20 04:00 Results Labs on day of discharge: Labs from last 24 hours 05/26/20 05/26/2021 07:12 07:12 20:00 WBC 4.2 L RBC 3.52 L Hgb 10.8 L 10.1 L Hct 32.8 L 31.7 L MCV 93.2 MCH 30.7 MCHC 33.0 RDW 13.9 Plt Count 182 MPV 8.7 Neut % (Auto) 33.0 L Lymph % (Auto) 52.2 H Terrell % (Auto) 5.6 Eos % (Auto) 8.5 Baso % (Auto) 0.7 Neut # (Auto) 1.4 L Lymph # (Auto) 2.2 Terrell # (Auto) 0.2 Eos # (Auto) 0.4 Baso # (Auto) 0.0 Total Counted 100 Neutrophils % (Manual) 47 Lymphocytes % (Manual) 48 Monocytes % (Manual) 5 Platelet Estimate Normal RBC Morphology Normal Sodium 139 Potassium 4.0 Chloride 116 H Carbon Dioxide 17 L Anion Gap 10.0 BUN 28 H Creatinine 1.50 H D Estimated Creat Clear 38 Estimated GFR 46 L Est GFR ( Amer) 56 L D Glucose 99 Calcium 8.8 05/25/20 14:00 WBC RBC Hgb 10.6 L Hct 31.5 L MCV MCH MCHC RDW Plt Count MPV Neut % (Auto) Lymph % (Auto) Terrell % (Auto) Eos % (Auto) Baso % (Auto) Neut # (Auto) Lymph # (Auto) Terrell # (Auto) Eos # (Auto) Baso # (Auto) Total Counted Neutrophils % (Manual) Lymphocytes % (Manual) Monocytes % (Manual) Platelet Estimate RBC Morphology Sodium Potassium Chloride Carbon Dioxide Anion Gap BUN Creatinine Estimated Creat Clear Estimated GFR Est GFR ( Amer) Glucose Calcium DS: Diagnosis - Discharge Diagnosis (1) Upper gastrointestinal hemorrhage S
[2020-05-26 11:12] VITALS: BP 134/73; PULSE 93; RESP 17; TEMP 36.9; O2SAT 100; BMI 20.7
== END 2020-05-26 09:30 | disposition home or self-care (01) ==
LOC: ER 06:36 → 2ND 08:13
PROVIDERS: Surgery; Admitting Provider Family Medicine; Emergency Provider Emergency Medicine; PCP Family Medicine; Visit Provider Family Medicine
PROC: 0DJ08ZZ Inspection of Upper Intestinal Tract, Via Natural or Artificial Opening Endoscopic (ICD-10-PCS; CPT 43235; principal; 2020-05-24 09:30)
DX: K92.2 Gastrointestinal hemorrhage, unspecified (principal); N17.9 Acute kidney failure, unspecified; E86.0 Dehydration; Z79.899 Other long term (current) drug therapy
CPT/HCPCS: 43239; 36415; 74246; 74248; 80048; 80053; 81001; 83605; 85007; 85014; 85018; 85025; 85610; 85730; 86850; 87581; 87633; 87798; 88305; 96365; 96366; 96367; 96375; 99284; G0378; J2405

== ENCOUNTER → 2021-04-25 13:47 | Outpatient (CLI) | payer MEDICARE, MEDICAID, SELFPAY ==
--- NOTE | 2021-04-25 13:51 | CT_ITS ---
FINAL REPORT CLINICAL HISTORY: SMOKER, SCREENING FOR LUNG CANCER, FINDINGS: Low-Dose Chest CT CTDI vol (mGy): 2.90 DLP (mGy-cm): 112.55 Axial images were obtained from the lung apex to the mid abdomen by computed tomography. Low-dose protocol was utilized. FINDINGS: CHEST: There is no axillary adenopathy. There is no hilar or mediastinal adenopathy. The heart is proper size. There is no pericardial or pleural effusion. Limited images of the upper abdomen shows a 3 mm left renal stone.. Lung window images demonstrate a stable 4 mm nodule near the minor fissure seen on image 44. There is a stable 3 mm right lower lobe nodule seen on image 49. There are several other less than 5 mm nodules which are stable. There are multiple calcified granulomas. No new mass or nodule is identified. There is moderate to severe emphysema. There is mild scarring. IMPRESSION: Stable nodules. No new mass or nodule identified. Lung RADS category 1. Recommend 12 month follow-up low-dose chest CT. Reviewed, Interpreted and Dictated by Uziel Marin III, MD Transcribed by Dionne Fernandez Authenticated by Uziel Marin III, MD on 04/25/2021 02:41:13 PM [facility]
== END ==
PROVIDERS: PCP Family Medicine; Visit Provider Family Medicine
DX: Z87.891 Personal history of nicotine dependence (principal); Z12.2 Encounter for screening for malignant neoplasm of respiratory organs
CPT/HCPCS: 71271

== ENCOUNTER → 2021-07-16 16:42 | Outpatient (CLI) | payer MEDICARE, MEDICAID, SELFPAY ==
[2021-07-16 17:05] LABS: Basophils # 0.1 K/mm3 (0-0.2); Basophils % 1.5 % (0.1-2.0); Eosinophils # 1.4 K/mm3 (0.0-0.4); Eosinophils % 18.2 % (0.1-12.0); Hematocrit 37.5 % (42.0-52.0); Hemoglobin 12.2 g/dL (14.1-18.0); Lymphocytes # 2.5 K/mm3 (0.7-4.5); Lymphocytes % 32.6 % (10-50); Mean Corpuscular HGB Conc 32.6 g/dL (31.8-35.4); Mean Corpuscular Hemoglobin 31.3 pg (27.0-31.2); Mean Platelet Volume 9.3 fl (7.4-10.4); Monocytes # 0.5 K/mm3 (0.1-1.0); Monocytes % 6.6 % (1.7-9.3); Neutrophils # 3.2 K/mm3 (1.8-7.8); Neutrophils % 41.1 % (37.0-80.0); Platelet Count 352 K/mm3 (142-424); Red Cell Distribution Width 13.9 % (11.5-17.5); White Blood Count 7.7 K/mm3 (4.8-10.8)
[2021-07-16 17:37] LABS: Alanine Aminotransferase 17 U/L (12-78); Albumin/Globulin Ratio 1.5 (1.1-1.8); Alkaline Phosphatase 68 U/L (38-126); Aspartate Amino Transferase 24 U/L (17-59); Blood Urea Nitrogen 17 mg/dl (9-20); Calcium 9.2 mg/dl (8.4-10.2); Carbon Dioxide 21 mmol/L (22.0-30.0); Chloride 97 mmol/L (98-107); Chol/HDL Ratio 2.2 (1-3.5); Cholesterol 90 mg/dl (140-200); Estimated Glomerular Filt Rate 65 ml/min (>60); GFR (African American) 79 ML/MIN (>60); Globulin 2.6 g/dL (1.3-3.2); Glucose 130 mg/dl (74-100); HDL Cholesterol 41 mg/dl (40-60); Sodium 128 mmol/L (136-145); Total Protein,Serum 6.6 g/dl (6.3-8.2); Triglycerides 81 mg/dl (30-150); VLDL Cholesterol 16 mg/dL (0-40)
[2021-07-16 17:38] LABS: Bilirubin,Total < 0.1 mg/dl (0.2-1.3)
[2021-07-16 17:48] LABS: Direct LDL Cholesterol 32.22 mg/dL (100-129)
[2021-07-16 18:08] LABS: Prostate Specific Ag Screen < 0.1 ng/ml (0.0-4.0)
[2021-07-17 16:43] LABS: Iron 78 ug/dL (49-181)
[2021-07-17 17:01] LABS: T4 (Thyroxine) 9.7 ug/dl (5.53-11.0)
[2021-07-17 17:15] LABS: Thyroid Stimulating Hormone 1.74 uIU/mL (0.465-4.68)
[2021-07-17 17:19] LABS: Ferritin 166 ng/ml (17.9-464)
[2021-07-17 17:22] LABS: Total Iron Binding Capacity 283 ug/dL (261-462)
[2021-07-17 18:19] LABS: Vitamin B12 264 pg/mL (239-931)
== END ==
PROVIDERS: PCP Internal Medicine; Visit Provider Internal Medicine
DX: C61 Malignant neoplasm of prostate (principal); I73.9 Peripheral vascular disease, unspecified; I10 Essential (primary) hypertension; E78.5 Hyperlipidemia, unspecified; D64.9 Anemia, unspecified; Z12.5 Encounter for screening for malignant neoplasm of prostate
CPT/HCPCS: 36415; 80053; 80061; 82533; 82607; 82728; 83540; 83550; 84436; 84443; 85025; G0103

== ENCOUNTER → 2021-08-19 16:41 | Outpatient (CLI) | payer MEDICARE, MEDICAID, SELFPAY ==
[2021-08-19 17:44] LABS: Basophils # 0.1 K/mm3 (0-0.2); Basophils % 0.6 % (0.1-2.0); Eosinophils # 1.2 K/mm3 (0.0-0.4); Eosinophils % 14.8 % (0.1-12.0); Hematocrit 34.5 % (42.0-52.0); Hemoglobin 11.7 g/dL (14.1-18.0); Lymphocytes # 2.4 K/mm3 (0.7-4.5); Lymphocytes % 29.6 % (10-50); Mean Corpuscular HGB Conc 33.9 g/dL (31.8-35.4); Mean Corpuscular Hemoglobin 31.6 pg (27.0-31.2); Mean Corpuscular Volume 93.3 fl (80-94); Mean Platelet Volume 8.7 fl (7.4-10.4); Monocytes # 0.5 K/mm3 (0.1-1.0); Monocytes % 5.7 % (1.7-9.3); Neutrophils % 49.4 % (37.0-80.0); Platelet Count 321 K/mm3 (142-424); Red Cell Distribution Width 13.7 % (11.5-17.5)
[2021-08-19 17:59] LABS: Chloride 101 mmol/L (98-107)
[2021-08-19 18:00] LABS: Potassium 4.1 mmoL/L (3.5-5.1); Sodium 127 mmol/L (136-145)
[2021-08-19 18:03] LABS: Anion Gap 14.1 mEq/L (5-15); Blood Urea Nitrogen 18 mg/dl (9-20); Calcium 9.5 mg/dl (8.4-10.2); Carbon Dioxide 16 mmol/L (22.0-30.0); Estimated Glomerular Filt Rate 59 ml/min (>60); GFR (African American) 72 ML/MIN (>60); Glucose 92 mg/dl (74-100)
[2021-08-21 11:23] LABS: Sodium, Urine 88 mmol/L (Not Estab.)
[2021-08-22 00:07] LABS: Osmolality, Urine 489 mOsmol/kg (.)
== END ==
PROVIDERS: PCP Internal Medicine; Visit Provider Internal Medicine
DX: D64.9 Anemia, unspecified (principal); E87.1 Hypo-osmolality and hyponatremia
CPT/HCPCS: 80048; 83930; 83935; 84300; 85025

== ENCOUNTER → 2021-09-30 13:03 | Outpatient (CLI) | payer MEDICARE, MEDICAID, SELFPAY ==
[2021-09-30 16:27] LABS: Basophils # 0.1 K/mm3 (0-0.2); Basophils % 0.8 % (0.1-2.0); Eosinophils # 1.3 K/mm3 (0.0-0.4); Hemoglobin 12.2 g/dL (14.1-18.0); Lymphocytes # 2.3 K/mm3 (0.7-4.5); Lymphocytes % 29.5 % (10-50); Mean Corpuscular HGB Conc 29.8 g/dL (31.8-35.4); Mean Corpuscular Hemoglobin 30.8 pg (27.0-31.2); Mean Corpuscular Volume 103.5 fl (80-94); Mean Platelet Volume 10.6 fl (7.4-10.4); Monocytes # 0.5 K/mm3 (0.1-1.0); Monocytes % 6.6 % (1.7-9.3); Neutrophils # 3.7 K/mm3 (1.8-7.8); Neutrophils % 47.1 % (37.0-80.0); Platelet Count 352 K/mm3 (142-424); Red Blood Count 3.96 M/mm3 (4.60-6.20); Red Cell Distribution Width 14.8 % (11.5-17.5); White Blood Count 7.9 K/mm3 (4.8-10.8)
[2021-09-30 17:25] LABS: Anion Gap 15.3 mEq/L (5-15); Blood Urea Nitrogen 12 mg/dl (9-20); Calcium 8.9 mg/dl (8.4-10.2); Carbon Dioxide 17 mmol/L (22.0-30.0); Chloride 111 mmol/L (98-107); Estimated Glomerular Filt Rate 54 ml/min (>60); GFR (African American) 65 ML/MIN (>60); Glucose 88 mg/dl (74-100); Potassium 5.3 mmoL/L (3.5-5.1); Sodium 138 mmol/L (136-145)
== END ==
PROVIDERS: PCP Internal Medicine; Visit Provider Internal Medicine
DX: I10 Essential (primary) hypertension (principal); I73.9 Peripheral vascular disease, unspecified; D64.9 Anemia, unspecified; E87.1 Hypo-osmolality and hyponatremia; J44.9 Chronic obstructive pulmonary disease, unspecified
CPT/HCPCS: 80048; 85025

== ENCOUNTER → 2022-01-15 13:49 | Outpatient (CLI) | payer MEDICARE, MEDICAID, SELFPAY ==
[2022-01-15 15:48] LABS: Basophils # 0.1 K/mm3 (0-0.2); Basophils % 0.8 % (0.1-2.0); Eosinophils # 1.2 K/mm3 (0.0-0.4); Eosinophils % 14.7 % (0.1-12.0); Hemoglobin 13.3 g/dL (14.1-18.0); Lymphocytes # 2.6 K/mm3 (0.7-4.5); Lymphocytes % 30.5 % (10-50); Mean Corpuscular HGB Conc 31.7 g/dL (31.8-35.4); Mean Corpuscular Hemoglobin 30.7 pg (27.0-31.2); Mean Corpuscular Volume 96.7 fl (80-94); Mean Platelet Volume 10.8 fl (7.4-10.4); Monocytes # 0.5 K/mm3 (0.1-1.0); Monocytes % 6.1 % (1.7-9.3); Neutrophils % 47.8 % (37.0-80.0); Platelet Count 281 K/mm3 (142-424); Red Blood Count 4.34 M/mm3 (4.60-6.20); Red Cell Distribution Width 14.5 % (11.5-17.5); White Blood Count 8.4 K/mm3 (4.8-10.8)
[2022-01-15 16:43] LABS: Anion Gap 14.1 mEq/L (5-15); Blood Urea Nitrogen 15 mg/dl (9-20); Calcium 9.8 mg/dl (8.4-10.2); Carbon Dioxide 18 mmol/L (22.0-30.0); Chloride 111 mmol/L (98-107); Estimated Glomerular Filt Rate 49 ml/min (>60); GFR (African American) 60 ML/MIN (>60); Glucose 83 mg/dl (74-100); Potassium 5.1 mmoL/L (3.5-5.1); Sodium 138 mmol/L (136-145)
== END ==
PROVIDERS: PCP Internal Medicine; Visit Provider Internal Medicine
DX: I10 Essential (primary) hypertension (principal); D64.9 Anemia, unspecified; J44.9 Chronic obstructive pulmonary disease, unspecified
CPT/HCPCS: 80048; 85025

== ENCOUNTER → 2022-01-28 08:05 | Outpatient (POV) | payer MEDICARE, MEDICAID, SELFPAY | PROVIDERS: Visit Provider Dermatology | DX: Z00.00 Encounter for general adult medical examination without abnormal findings (principal) ==

== ENCOUNTER → 2022-06-09 14:43 | Outpatient (CLI) | payer MEDICARE, MEDICAID, SELFPAY ==
--- NOTE | 2022-06-09 14:47 | CT_ITS ---
FINAL REPORT CLINICAL HISTORY: HISTORY OF SMOKING. smoker 1/2 ppd x 60 years. hx of prostate cancer. COMPARISON: 04/25/2021 FINDINGS: Axial images were obtained from the lung apex to the mid abdomen by computed tomography. Low-dose protocol was utilized. CTDl vol(mGy): 2.90 DLP (mGy-cm): 116.98 FINDINGS: There is no axillary adenopathy. There is no hilar or mediastinal adenopathy. The heart size is normal. There is no pericardial or pleural effusion. There is a stable, 3 mm nodule along the minor fissure on image 44 of series 4. On image 46 of series 4 there are tiny nodules in the periphery of the right mid lung which are stable. There are moderate advanced changes of central lobular emphysema. There is biapical pleural and parenchymal scarring. There is nodularity in the posterior left upper lobe measuring up to 6 mm in greatest dimension seen on image 17 of series 4. These appear slightly more evident than on the previous exam. Limited images of the upper abdomen are unremarkable. IMPRESSION: Increased nodularity in the left upper lobe. Lung RADS category 4A. Recommend 3 month follow-up low-dose chest CT. Reviewed, Interpreted and Dictated by Leonidas Tomas MD Transcribed by Jihan Bautista Authenticated and . [facility]
== END ==
PROVIDERS: PCP Internal Medicine; Visit Provider Internal Medicine
DX: Z87.891 Personal history of nicotine dependence (principal); Z12.2 Encounter for screening for malignant neoplasm of respiratory organs
CPT/HCPCS: 71271

== ENCOUNTER → 2022-08-05 14:05 | Outpatient (POV) | payer MEDICARE, MEDICAID, SELFPAY | PROVIDERS: Visit Provider Dermatology | DX: Z00.00 Encounter for general adult medical examination without abnormal findings (principal) ==

== ENCOUNTER → 2022-10-01 07:37 | Outpatient (CLI) | payer MEDICARE, MEDICAID, SELFPAY ==
--- NOTE | 2022-10-01 07:42 | CT_ITS ---
FINAL REPORT TECHNIQUE: Axial images were obtained through the chest without contrast. CLINICAL HISTORY: Increased nodularity left upper lobe COMPARISON: CT low-dose 06/09/2022 FINDINGS: The lungs are clear. The heart size is normal. There is no pericardial or pleural effusion. Localized density medial left apex seen on image 63 of series 3 is stable or slightly improved. Ovoid nodule in the left upper lobe measuring 1.4 cm is stable compared to prior exam, seen on image 76 of series 3. There are moderate changes of centrilobular emphysema. There is bilateral pulmonary scarring, particularly at the apices. Limited images of the upper abdomen demonstrate no acute findings. IMPRESSION: Stable 1.4 cm nodule left upper lobe. Recommend continued follow-up. Reviewed, Interpreted and Dictated by Leonidas Tomas MD Transcribed by Silvia Germain Authenticated and [facility]
== END ==
PROVIDERS: PCP Internal Medicine; Visit Provider Internal Medicine
DX: R91.1 Solitary pulmonary nodule (principal)
CPT/HCPCS: 71250

== ENCOUNTER 2023-03-06 15:25 | Outpatient (CLI) | payer MEDICARE, MEDICAID, SELFPAY ==
--- NOTE | 2023-03-06 15:30 | XR_ITS ---
FINAL REPORT TECHNIQUE: 5 views CLINICAL HISTORY: NECK PAIN RADIATING TO LT SHOULDER COMPARISON: None FINDINGS: There is no fracture present. There is no malalignment. There is moderate C6-7 disc space narrowing present. IMPRESSION: No acute process. Moderate C6-7 disc space narrowing. Reviewed, Interpreted and Dictated by Leonidas Tmoas MD Transcribed by Sophie Monet Authenticated and [facility]
== END 2023-03-06 23:59 ==
PROVIDERS: PCP Internal Medicine; Visit Provider Internal Medicine
DX: M54.2 Cervicalgia (principal); M25.512 Pain in left shoulder
CPT/HCPCS: 72050

== ENCOUNTER 2023-03-24 11:44 | Outpatient (POV) | payer MEDICARE, MEDICAID, SELFPAY | END 2023-03-24 23:59 | disposition home or self-care (01) | LOC: SC 11:45 | PROVIDERS: PCP Internal Medicine; Visit Provider Dermatology | DX: Z00.00 Encounter for general adult medical examination without abnormal findings (principal) ==

== ENCOUNTER 2023-04-22 10:53 | Outpatient (CLI) | payer MEDICARE, MEDICAID, SELFPAY ==
--- NOTE | 2023-04-22 10:54 | CT_ITS ---
FINAL REPORT TECHNIQUE: Thin section axial CT images were obtained through the neck after intravenous contrast administration. Coronal and sagittal reformats were also obtained. This study was performed with techniques to keep radiation doses as low as reasonably achievable (ALARA). Individualized dose reduction techniques using automated exposure control or adjustment of mA and/or kV according to the patient''s size were employed. CLINICAL HISTORY: oral lesion on Left Tonsil-- COMPARISON: None FINDINGS: The nasopharynx, hypopharynx and larynx are unremarkable. The oropharynx, there is a 7 mm low-attenuation nodule present in the right tonsillar pillar, a nonspecific finding. There is no mass or adenopathy. There are multiple small nodules present in the thyroid gland bilaterally. The visualized sinuses are clear. There is no acute osseous abnormality. Severe changes of emphysema are present in the lung apices. IMPRESSION: 7 mm low-attenuation nodule in the right tonsillar pillar, a nonspecific finding. Multiple small nodules are present in the thyroid gland bilaterally, suggest thyroid ultrasound for further evaluation. Severe changes of emphysema are present in the lung apices. Reviewed, Interpreted and Dictated by Uziel Marin III, MD Transcribed by Sophie Monet Authenticated and [facility]
[2023-04-22 11:22] LABS: Blood Urea Nitrogen 11 mg/dl (9-20); Estimated Glomerular Filt Rate 59 ml/min (>60); GFR (African American) 71 ML/MIN (>60)
[2023-04-22] MEDS: IOPAMIDOL-370 (76%);100ML BOTTLE 75 ML IV (12:18)
[2023-04-22] MEDS: SODIUM CHLORIDE 0.9% 10ML SYR (RAD ONLY) 10 ML IV (12:18)
== END 2023-04-22 23:59 ==
LOC: RAD 10:54
PROVIDERS: Nurse Practitioner; PCP Internal Medicine; Visit Provider Student in an Organized Health Care Education/Training Program
DX: K13.70 Unspecified lesions of oral mucosa (principal)
CPT/HCPCS: 36415; 70491; 82565; 84520; Q9967

== ENCOUNTER 2023-05-05 13:38 | Outpatient (CLI) | payer MEDICARE, MEDICAID, SELFPAY ==
[2023-05-05 13:55] LABS: Basophils # 0.1 K/mm3 (0-0.2); Basophils % 0.8 % (0.1-2.0); Eosinophils # 0.3 K/mm3 (0.0-0.4); Hematocrit 43.6 % (42.0-52.0); Hemoglobin 13.9 g/dL (14.1-18.0); Lymphocytes # 2.8 K/mm3 (0.7-4.5); Lymphocytes % 36.4 % (10-50); Mean Corpuscular HGB Conc 31.9 g/dL (31.8-35.4); Mean Corpuscular Hemoglobin 32.9 pg (27.0-31.2); Mean Corpuscular Volume 103.1 fl (80-94); Mean Platelet Volume 8.1 fl (7.4-10.4); Monocytes # 0.5 K/mm3 (0.1-1.0); Monocytes % 6.7 % (1.7-9.3); Platelet Count 341 K/mm3 (142-424); Red Blood Count 4.23 M/mm3 (4.60-6.20); Red Cell Distribution Width 14.1 % (11.5-17.5); White Blood Count 7.8 K/mm3 (4.8-10.8)
[2023-05-05 14:31] LABS: Chloride 113 mmol/L (98-107); Potassium 5.3 mmoL/L (3.5-5.1); Sodium 138 mmol/L (136-145)
[2023-05-05 14:34] LABS: Alanine Aminotransferase 18 U/L (12-78); Albumin Level 3.9 g/dl (3.5-5.0); Albumin/Globulin Ratio 1.6 (1.1-1.8); Alkaline Phosphatase 76 U/L (38-126); Anion Gap 13.3 mEq/L (5-15); Aspartate Amino Transferase 26 U/L (17-59); Bilirubin,Total 0.3 mg/dl (0.2-1.3); Blood Urea Nitrogen 13 mg/dl (9-20); Calcium 9.5 mg/dl (8.4-10.2); Carbon Dioxide 17 mmol/L (22.0-30.0); Estimated Glomerular Filt Rate 59 ml/min (>60); GFR (African American) 71 ML/MIN (>60); Globulin 2.4 g/dL (1.3-3.2); Glucose 125 mg/dl (74-100); Total Protein,Serum 6.3 g/dl (6.3-8.2)
[2023-05-06 10:52] LABS: Vitamin B12 873 pg/mL (239-931)
[2023-05-06 11:09] LABS: Folate > 20.00 ng/mL
== END 2023-05-05 23:59 ==
LOC: LAB 13:40
PROVIDERS: PCP Internal Medicine; Visit Provider Internal Medicine Medical Oncology
DX: C01 Malignant neoplasm of base of tongue (principal)
CPT/HCPCS: 36415; 80053; 82607; 82746; 85025

== ENCOUNTER 2023-06-03 11:38 | Outpatient (CLI) | payer MEDICARE, MEDICAID, SELFPAY ==
[2023-06-03 11:42] VITALS: BMI 18.5
--- NOTE | 2023-06-03 11:46 | PC.NURSE ---
1146-collected labs via venipuncture stick in left ac with butterfly needle;pt to d/c home
[2023-06-03 11:58] LABS: Chloride 110 mmol/L (98-107); Potassium 4.5 mmoL/L (3.5-5.1); Sodium 134 mmol/L (136-145)
[2023-06-03 12:00] LABS: Basophils # 0.1 K/mm3 (0-0.2); Basophils % 0.6 % (0.1-2.0); Eosinophils # 0.3 K/mm3 (0.0-0.4); Eosinophils % 3.6 % (0.1-12.0); Hematocrit 38.4 % (42.0-52.0); Hemoglobin 12.4 g/dL (14.1-18.0); Lymphocytes # 2.2 K/mm3 (0.7-4.5); Lymphocytes % 29.9 % (10-50); Mean Corpuscular HGB Conc 32.4 g/dL (31.8-35.4); Mean Corpuscular Hemoglobin 32.2 pg (27.0-31.2); Mean Corpuscular Volume 99.4 fl (80-94); Mean Platelet Volume 8.7 fl (7.4-10.4); Monocytes # 0.4 K/mm3 (0.1-1.0); Monocytes % 5.7 % (1.7-9.3); Neutrophils # 4.4 K/mm3 (1.8-7.8); Neutrophils % 60.2 % (37.0-80.0); Platelet Count 320 K/mm3 (142-424); Red Blood Count 3.86 M/mm3 (4.60-6.20); Red Cell Distribution Width 14.2 % (11.5-17.5); White Blood Count 7.3 K/mm3 (4.8-10.8)
[2023-06-03 12:01] LABS: Alanine Aminotransferase 21 U/L (12-78); Albumin Level 4.1 g/dl (3.5-5.0); Albumin/Globulin Ratio 1.5 (1.1-1.8); Alkaline Phosphatase 60 U/L (38-126); Anion Gap 10.5 mEq/L (5-15); Aspartate Amino Transferase 26 U/L (17-59); Bilirubin,Total 0.5 mg/dl (0.2-1.3); Blood Urea Nitrogen 24 mg/dl (9-20); Calcium 9.5 mg/dl (8.4-10.2); Carbon Dioxide 18 mmol/L (22.0-30.0); Creatinine Clearance Estimated 50 mL/min (50-200); Estimated Glomerular Filt Rate 65 ml/min (>60); GFR (African American) 79 ML/MIN (>60); Globulin 2.7 g/dL (1.3-3.2); Glucose 113 mg/dl (74-100); Total Protein,Serum 6.8 g/dl (6.3-8.2)
== END 2023-06-03 11:50 | disposition home or self-care (01) ==
LOC: INF 11:39
PROVIDERS: PCP Internal Medicine; Visit Provider Internal Medicine Medical Oncology
DX: C01 Malignant neoplasm of base of tongue (principal)
CPT/HCPCS: 36415; 80053; 85025

== ENCOUNTER 2023-06-04 09:15 | Outpatient (CLI) | payer MEDICARE, MEDICAID, SELFPAY ==
[2023-06-04] VITALS (10 sets, daily range): BP systolic 139–167; BP diastolic 63–77; PULSE 51–59; RESP 18; TEMP 36.8; O2SAT 98
[2023-06-04] MEDS: [UNRECOGNIZED DRUG - OTHER] IV ×2 (09:40→12:55)
[2023-06-04] MEDS: POTASSIUM CHLORIDE IV ×2 (09:40→12:55)
[2023-06-04] MEDS: MAGNESIUM SULFATE IV ×2 (09:40→12:55)
[2023-06-04] MEDS: ONDANSETRON 4MG ODT 16 MG SL (11:20)
[2023-06-04] MEDS: DEXAMETHASONE 4MG TABLET 12 MG PO (11:20)
[2023-06-04] MEDS: APREPITANT 125MG/80MG TRIFOLD PACK 1 PACKET PO (11:20)
[2023-06-04] MEDS: CISPLATIN IV (11:34)
[2023-06-04] MEDS: SODIUM CHLORIDE 0.9% IV (11:34)
--- NOTE | 2023-06-05 13:01 | DIET.NUTRFU ---
RD consulted secondary to 1st chemo dose. 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 When called answer and took down contact information for any nutritional concerns.
== END 2023-06-04 15:02 | disposition home or self-care (01) ==
LOC: INF 09:16
PROVIDERS: PCP Internal Medicine; Visit Provider Internal Medicine Medical Oncology
DX: C01 Malignant neoplasm of base of tongue (principal)
CPT/HCPCS: 96413; J8501; J9060

== ENCOUNTER 2023-06-10 10:59 | Outpatient (CLI) | payer MEDICARE, MEDICAID, SELFPAY ==
[2023-06-10 11:05] VITALS: BMI 18.6
--- NOTE | 2023-06-10 11:08 | PC.NURSE ---
1108-collected labs via venipuncture stick in left ac with butterfly needle;pt to return tomorrow for treatment
[2023-06-10 11:22] LABS: Basophils % 0.1 % (0.1-2.0); Eosinophils # 0.1 K/mm3 (0.0-0.4); Eosinophils % 0.8 % (0.1-12.0); Hematocrit 40.7 % (42.0-52.0); Hemoglobin 13.2 g/dL (14.1-18.0); Lymphocytes # 1.8 K/mm3 (0.7-4.5); Lymphocytes % 14.8 % (10-50); Mean Corpuscular HGB Conc 32.4 g/dL (31.8-35.4); Mean Corpuscular Volume 98.8 fl (80-94); Mean Platelet Volume 8.1 fl (7.4-10.4); Monocytes # 1.1 K/mm3 (0.1-1.0); Monocytes % 8.8 % (1.7-9.3); Neutrophils # 9.2 K/mm3 (1.8-7.8); Neutrophils % 75.5 % (37.0-80.0); Platelet Count 354 K/mm3 (142-424); Red Blood Count 4.12 M/mm3 (4.60-6.20); Red Cell Distribution Width 14.3 % (11.5-17.5); White Blood Count 12.2 K/mm3 (4.8-10.8)
[2023-06-10 11:30] LABS: Alanine Aminotransferase 55 U/L (12-78); Albumin Level 3.7 g/dl (3.5-5.0); Albumin/Globulin Ratio 1.4 (1.1-1.8); Alkaline Phosphatase 54 U/L (38-126); Anion Gap 10.1 mEq/L (5-15); Aspartate Amino Transferase 39 U/L (17-59); Bilirubin,Total 0.5 mg/dl (0.2-1.3); Blood Urea Nitrogen 30 mg/dl (9-20); Calcium 9.2 mg/dl (8.4-10.2); Carbon Dioxide 20 mmol/L (22.0-30.0); Chloride 108 mmol/L (98-107); Creatinine Clearance Estimated 50 mL/min (50-200); Estimated Glomerular Filt Rate 65 ml/min (>60); GFR (African American) 79 ML/MIN (>60); Globulin 2.6 g/dL (1.3-3.2); Glucose 92 mg/dl (74-100); Potassium 4.1 mmoL/L (3.5-5.1); Sodium 134 mmol/L (136-145); Total Protein,Serum 6.3 g/dl (6.3-8.2)
== END 2023-06-10 11:26 | disposition home or self-care (01) ==
LOC: INF 11:00
PROVIDERS: PCP Internal Medicine; Visit Provider Internal Medicine Medical Oncology
DX: C01 Malignant neoplasm of base of tongue (principal)
CPT/HCPCS: 36415; 80053; 85025

== ENCOUNTER 2023-06-11 09:30 | Outpatient (CLI) | payer MEDICARE, MEDICAID, SELFPAY ==
[2023-06-11] VITALS (7 sets, daily range): BP systolic 139–179; BP diastolic 64–85; PULSE 69–76; RESP 18; TEMP 36.7; O2SAT 98
[2023-06-11] MEDS: MAGNESIUM SULFATE IV ×2 (09:52→12:48)
[2023-06-11] MEDS: [UNRECOGNIZED DRUG - OTHER] IV ×2 (09:52→12:48)
[2023-06-11] MEDS: POTASSIUM CHLORIDE IV ×2 (09:52→12:48)
[2023-06-11] MEDS: ONDANSETRON 4MG ODT 16 MG SL (10:55)
[2023-06-11] MEDS: DEXAMETHASONE 4MG TABLET 12 MG PO (10:56)
[2023-06-11] MEDS: APREPITANT 125MG/80MG TRIFOLD PACK 1 PACKET PO (10:56)
[2023-06-11] MEDS: SODIUM CHLORIDE 0.9% IV (11:48)
[2023-06-11] MEDS: CISPLATIN IV (11:48)
== END 2023-06-11 15:07 | disposition home or self-care (01) ==
LOC: INF 09:31
PROVIDERS: PCP Internal Medicine; Visit Provider Internal Medicine Medical Oncology
DX: C01 Malignant neoplasm of base of tongue (principal); Z79.899 Other long term (current) drug therapy
CPT/HCPCS: 96413; J8501; J9060

== ENCOUNTER 2023-06-17 10:02 | Outpatient (CLI) | payer MEDICARE, MEDICAID, SELFPAY ==
[2023-06-17 10:07] VITALS: BMI 18.5
--- NOTE | 2023-06-17 10:10 | PC.NURSE ---
1010-collected labs via venipuncture stick in left ac with butterfly needle;pt d/c home
[2023-06-17 10:19] LABS: Basophils % 0.1 % (0.1-2.0); Eosinophils % 0.2 % (0.1-12.0); Hematocrit 39.7 % (42.0-52.0); Hemoglobin 12.7 g/dL (14.1-18.0); Lymphocytes # 0.8 K/mm3 (0.7-4.5); Lymphocytes % 6.5 % (10-50); Mean Corpuscular HGB Conc 32.1 g/dL (31.8-35.4); Mean Corpuscular Hemoglobin 32.1 pg (27.0-31.2); Monocytes # 0.7 K/mm3 (0.1-1.0); Monocytes % 5.7 % (1.7-9.3); Neutrophils # 10.2 K/mm3 (1.8-7.8); Neutrophils % 87.5 % (37.0-80.0); Platelet Count 275 K/mm3 (142-424); Red Blood Count 3.97 M/mm3 (4.60-6.20); Red Cell Distribution Width 14.7 % (11.5-17.5); White Blood Count 11.6 K/mm3 (4.8-10.8)
[2023-06-17 10:25] LABS: MANUAL DIFFERENTIAL MANUAL DIFFERENTIAL (MANUAL DIFF)
[2023-06-17 10:32] LABS: Chloride 105 mmol/L (98-107); Potassium 4.3 mmoL/L (3.5-5.1); Sodium 132 mmol/L (136-145)
[2023-06-17 10:34] LABS: Alanine Aminotransferase 48 U/L (12-78); Aspartate Amino Transferase 32 U/L (17-59); Blood Urea Nitrogen 24 mg/dl (9-20); Creatinine Clearance Estimated 50 mL/min (50-200); Estimated Glomerular Filt Rate 65 ml/min (>60); GFR (African American) 79 ML/MIN (>60)
[2023-06-17 10:35] LABS: Albumin Level 3.3 g/dl (3.5-5.0); Albumin/Globulin Ratio 1.4 (1.1-1.8); Alkaline Phosphatase 53 U/L (38-126); Anion Gap 10.3 mEq/L (5-15); Bilirubin,Total 0.7 mg/dl (0.2-1.3); Calcium 9.2 mg/dl (8.4-10.2); Carbon Dioxide 21 mmol/L (22.0-30.0); Globulin 2.4 g/dL (1.3-3.2); Glucose 105 mg/dl (74-100); Total Protein,Serum 5.7 g/dl (6.3-8.2)
[2023-06-17 11:34] LABS: Lymphocytes % 9 % (10-50); Monocytes % 9 % (2-9); Neutrophils % 82 % (42-76); Total Cells Counted 100
[2023-06-17 11:36] LABS: Anisocytosis 1+; Macrocytosis 1+; Platelet Estimate Normal
== END 2023-06-17 10:12 | disposition home or self-care (01) ==
LOC: INF 10:03
PROVIDERS: PCP Internal Medicine; Visit Provider Internal Medicine Medical Oncology
DX: C01 Malignant neoplasm of base of tongue (principal); Z79.899 Other long term (current) drug therapy
CPT/HCPCS: 36415; 80053; 85007; 85025

== ENCOUNTER 2023-06-18 09:27 | Outpatient (CLI) | payer MEDICARE, MEDICAID, SELFPAY ==
[2023-06-18] VITALS (9 sets, daily range): BP systolic 152–168; BP diastolic 69–77; PULSE 72–79; RESP 18; TEMP 36.7; O2SAT 98–99
[2023-06-18] MEDS: POTASSIUM CHLORIDE 20 MEQ, MAGNESIUM SULFATE 2 GM in 0.9 % SODIUM CHLORIDE 1000ML 1,000 ML 507 MEQ IV ×2 (09:49→13:00)
[2023-06-18] MEDS: DEXAMETHASONE 4MG TABLET 12 MG PO (11:27)
[2023-06-18] MEDS: APREPITANT 125MG/80MG TRIFOLD PACK 1 PACKET PO (11:28)
[2023-06-18] MEDS: ONDANSETRON 4MG ODT 16 MG SL (11:28)
[2023-06-18] MEDS: SODIUM CHLORIDE 0.9% IV (11:56)
[2023-06-18] MEDS: CISPLATIN IV (11:56)
== END 2023-06-18 15:00 | disposition home or self-care (01) ==
LOC: INF 09:28
PROVIDERS: PCP Internal Medicine; Visit Provider Internal Medicine Medical Oncology
DX: C01 Malignant neoplasm of base of tongue (principal)
CPT/HCPCS: 96413; J8501; J9060

== ENCOUNTER 2023-06-24 10:24 | Outpatient (CLI) | payer MEDICARE, MEDICAID, SELFPAY ==
[2023-06-24 10:39] VITALS: BMI 18.6
[2023-06-24 10:51] LABS: Basophils % 0.1 % (0.1-2.0); Eosinophils % 0.4 % (0.1-12.0); Hematocrit 35.2 % (42.0-52.0); Hemoglobin 11.4 g/dL (14.1-18.0); Lymphocytes # 0.4 K/mm3 (0.7-4.5); Lymphocytes % 6.2 % (10-50); Mean Corpuscular HGB Conc 32.5 g/dL (31.8-35.4); Mean Corpuscular Hemoglobin 32.9 pg (27.0-31.2); Mean Corpuscular Volume 101.1 fl (80-94); Mean Platelet Volume 8.5 fl (7.4-10.4); Monocytes # 0.5 K/mm3 (0.1-1.0); Monocytes % 6.5 % (1.7-9.3); Neutrophils # 6.1 K/mm3 (1.8-7.8); Neutrophils % 86.8 % (37.0-80.0); Platelet Count 186 K/mm3 (142-424); Red Blood Count 3.48 M/mm3 (4.60-6.20); Red Cell Distribution Width 14.7 % (11.5-17.5)
[2023-06-24 11:04] LABS: Alanine Aminotransferase 36 U/L (12-78); Albumin Level 3.4 g/dl (3.5-5.0); Albumin/Globulin Ratio 1.4 (1.1-1.8); Alkaline Phosphatase 53 U/L (38-126); Anion Gap 12.3 mEq/L (5-15); Aspartate Amino Transferase 27 U/L (17-59); Bilirubin,Total 0.6 mg/dl (0.2-1.3); Blood Urea Nitrogen 30 mg/dl (9-20); Calcium 9.2 mg/dl (8.4-10.2); Carbon Dioxide 22 mmol/L (22.0-30.0); Chloride 102 mmol/L (98-107); Creatinine Clearance Estimated 50 mL/min (50-200); Estimated Glomerular Filt Rate 65 ml/min (>60); GFR (African American) 79 ML/MIN (>60); Globulin 2.5 g/dL (1.3-3.2); Glucose 116 mg/dl (74-100); Potassium 3.3 mmoL/L (3.5-5.1); Sodium 133 mmol/L (136-145); Total Protein,Serum 5.9 g/dl (6.3-8.2)
[2023-06-24 11:12] LABS: MANUAL DIFFERENTIAL MANUAL DIFFERENTIAL (MANUAL DIFF)
[2023-06-24 12:16] LABS: Lymphocytes % 5 % (10-50); Macrocytosis 1+; Monocytes % 1 % (2-9); Neutrophils % 94 % (42-76); Platelet Estimate Normal; Total Cells Counted 100
== END 2023-06-24 10:45 | disposition home or self-care (01) ==
LOC: INF 10:25
PROVIDERS: PCP Internal Medicine; Visit Provider Internal Medicine Medical Oncology
DX: C01 Malignant neoplasm of base of tongue (principal)
CPT/HCPCS: 36415; 80053; 85007; 85025

== ENCOUNTER 2023-06-25 09:17 | Outpatient (CLI) | payer MEDICARE, MEDICAID, SELFPAY ==
[2023-06-25] VITALS (10 sets, daily range): BP systolic 141–158; BP diastolic 67–78; PULSE 60–80; RESP 18; TEMP 36.7; O2SAT 98
[2023-06-25] MEDS: POTASSIUM CHLORIDE 20 MEQ, MAGNESIUM SULFATE 2 GM in 0.9 % SODIUM CHLORIDE 1000ML 1,000 ML 500 MEQ IV ×2 (09:30→12:45)
[2023-06-25] MEDS: ONDANSETRON 4MG ODT 16 MG SL (11:12)
[2023-06-25] MEDS: DEXAMETHASONE 4MG TABLET 12 MG PO (11:13)
[2023-06-25] MEDS: APREPITANT 125MG/80MG TRIFOLD PACK 1 PACKET PO (11:13)
[2023-06-25] MEDS: CISPLATIN IV (11:38)
[2023-06-25] MEDS: SODIUM CHLORIDE 0.9% IV (11:38)
== END 2023-06-25 14:50 | disposition home or self-care (01) ==
PROVIDERS: PCP Internal Medicine; Visit Provider Internal Medicine Medical Oncology
DX: C01 Malignant neoplasm of base of tongue (principal)
CPT/HCPCS: 96413; J8501; J9060